=== PATIENT | male | born 1965 | race Caucasian/White ===

== ENCOUNTER 2017-01-20 16:51 | Emergency (ER) | payer MEDICAID ==
[~2017-01-20] VITALS: Ht 172.7 cm; Wt 70.0 kg
[~2017-01-20 16:51] MED LIST: CARV3.125 PO; FOLI1TAB4 PO; NITR0.4S SL; THERM PO; VITA100T2 PO
[2017-01-20 16:58] VITALS: BP 164/90; PULSE 103; RESP 20; TEMP 98; O2SAT 95
[2017-01-20 17:10] VITALS: BP 137/74; PULSE 97; RESP 18; TEMP 98.4
[2017-01-20] MEDS ORDERED: SODIUM CHLORIDE 0.9% FLUSH 5 ML FLUSH IVF PRN (18:00)
[2017-01-20] MEDS ORDERED: ASPIRIN 325 MG TAB PO ONE (18:00)
--- NOTE | 2017-01-20 18:12 | PD ---
HPI Chief Complaint: Chest Pain Time Seen by Provider: 18:11 Travel History International Travel<30 days: No Contact w/Intl Traveler<30days: No Traveled to known affect area: No History of Present Illness HPI 51-year-old male with a history of atrial fibrillation and alcohol abuse that presents to the ED for evaluation of alcohol abuse and chest pain and palpitations. Per patient she's been drinking since a young age. Per patient he has problems with alcohol. 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 Per patient he is homeless and cannot afford his medications. Per patient he drank about 16 cans of beer today. Per patient after drinking this he developed left-sided chest pain and palpitations. Per patient he feels like his heart is pounding. He states that he has some shortness of breath as well. Denies any abdominal pain. No nausea or vomiting. Per patient the symptoms have been ongoing for the past 2 hours. Per patient she's had these episodes before after drinking alcohol. He denies taking any blood thinners. Per patient he wants help with his alcohol. He does have a history of MRSA and allergies to lactose and penicillin. Denies any bowel movement or urinary issues. No other medical problems at this time. No trauma. No recent travel. Patient is a frequent flier to the hospital for alcohol-related problems as well as chest pain. He does have a documented history of A. fib. [facility] Past Medical History Arthritis: Yes Asthma: No Atrial Fibrillation: Yes Autoimmune Disease: No Blood Disorders: No Anxiety: Yes Depression: No Heart Rhythm Problems: Yes Cancer: No Cardiovascular Problems: Yes (ATRIAL FIBRILLATION) High Cholesterol: No Chest Pain: Yes Congestive Heart Failure: No COPD: No Cerebrovascular Accident: No Diabetes: No Diminished Hearing: Yes Diverticulitis: Yes Endocrine: No Gastrointestinal Disorders: Yes (CHRONES) GERD: No Genitourinary: No Hiatal Hernia: No Hypertension: No Immune Disorder: No Implanted Vascular Access Dvce: Yes Medical other: Yes (ALCOHOL DEPENDENCE) Musculoskeletal: Yes Neurologic: Yes (seizures) Psychiatric: Yes Reproductive: No Respiratory: No Immunizations Current: No Migraines: No Seizures: Yes (R/T ETOH few years ago) Sleep Apnea: No Thyroid Disease: No Ulcer: No PNEUMOCCOCAL Vaccine (Year): 1 Past Surgical History Abdominal Surgery: Yes (REMOVED PART OF LOWER INTESTINE) Appendectomy: Yes Arteriovenous Shunt: No Body Medical Devices: rods in right shoulder Cardiac Surgery: No Ear Surgery: No Endocrine Surgery: No Eye Surgery: No Genitourinary Surgery: No Gynecologic Surgery: No Neurologic Surgery: No Pacemaker: No Thoracic Surgery: No Other Surgery: Yes (COLON RESECTION) Social History Alcohol Use: Yes Tobacco Use: No Substance Use: No Allergies-Medications (Allergen,Severity, Reaction): Coded Allergies: Lactose (Verified Allergy, Severe, DIARRHEA, 01/20/17) *MDRO Multi-Drug Resistant Organism (Verified Allergy, Unknown, 01/20/17) MRSA (buttock wound) - 06/2013 MRSA PCR screen negative 01/10/16 Penicillin (Verified Allergy, Unknown, UNKNOWN, 01/20/17) Reported Meds & Prescriptions Reported Meds & Active Scripts Active Nitrostat SL (Nitroglycerin) 0.4 Mg Subl 0.4 Mg SL Q5M PRN Thera M Plus (Multivitamins/Minerals Therapeutic) 1 Tab 1 Tab PO DAILY Vitamin B-1 (Thiamine HCl) 100 Mg Tab 100 Mg PO DAILY Folate (Folic Acid) 1 Mg Tab 1 Mg PO DAILY Coreg (Carvedilol) 3.125 Mg Tab 3.125 Mg PO BID Review of Systems General / Constitutional: No: Fever, Chills, Weight Gain, Weight Loss, Other Eyes: No: Diploplia, Blurred Vision, Photophobia, Drainage, Redness, Foreign Body Sensation, Pain, Tearing, Blind Spots, Visual changes, Blindness, Other HENT: No: Headaches, Vertigo, Lightheadedness, Sore Throat, Rhinitis, Rhinorrhea, Congestion, Nosebleed, Neck Stiffness, Neck Pain, Masses, Gingival Bleeding, Dental Difficulties, Ear Discharge, Earache, Other Cardiovascular: Positive: Chest Pain or Discomfort, Palpitations, Tachycardia, Diaphoresis, No: Irregular Rhythm, Syncope, Dyspnea on exertion, Varicosities, Edema, Cyanosis, Varicosities, Phlebitis, Claudication, Other Respiratory: Positive: Shortness of Breath, No: Cough, Wheezing, Sneezing, Orthopnea, Hemoptysis, Stridor, Night Sweats, Pleuritic Pain, Other Gastrointestinal: No: Nausea, Vomiting, Diarrhea, Abdominal Pain, Hematemesis, Hematochezia, Constipation, Changes in Bowel Habits, Indigestion, Dysphagia, Loss of Appetite, Other Genitourinary: No: Urgency, Frequency, Dysuria, Nocturia, Hematuria, Decreased Urinary Output, Oliguria, Hesitancy, Dribbling, Incontinence, Pelvic Pain, Flank Pain, Dyspareunia, Discharge, Dysmenorrhea, Menorrhagia, Metorrhagia, Vaginal Bleeding, Other Skin: No Rash, No Itching, No Dryness, No Lumps, No Hives, No Change in Pigmentation, No Change in nails, No Alopecia, No Lesions, No Breast Lumps, No Breast Tenderness, No Breast Swelling, No Other Neurologic: No: Weakness, Dizziness, Syncope, Focal Abnormalities, Coordination Problem, Tremor, Ataxia, Headache, Change in Mentation, Slurred Speech, Paresthesia, Incontinence, Seizures, Sensory Disturbance, Other Psychiatric: Positive: Substance Abuse Endocrine: No: Heat Intolerance, Cold Intolerance, Polyuria, Polydipsia, Other Hematologic/Lymphatic: No: Easy Bruising, Lymph Node Enlargement, Other Physical Exam Narrative GENERAL: SKIN: Warm and dry. HEAD: Atraumatic. Normocephalic. EYES: Pupils equal and round 4 mm reactive to light and accommodation. No scleral icterus. No injection or drainage. ENT: No nasal bleeding or discharge. Mucous membranes pink and moist. Tongue is midline. No uvula deviation. NECK: Trachea midline. No JVD. CARDIOVASCULAR: Regular rate and rhythm. No murmurs, S3, S4. RESPIRATORY: No accessory muscle use. Clear to auscultation. Breath sounds equal bilaterally. GASTROINTESTINAL: Abdomen soft, non-tender, nondistended. Hepatic and splenic margins not palpable. MUSCULOSKELETAL: Extremities without clubbing, cyanosis, or edema. No obvious deformities. Full range of motion of the upper and lower extremities bilaterally. 2+ pulses bilaterally. NEUROLOGICAL: Awake and alert. No obvious cranial nerve deficits. Motor grossly within normal limits. Five out of 5 muscle strength in the arms and legs. Normal speech. PSYCHIATRIC: Appropriate mood and affect; insight and judgment normal. Data Data Last Documented VS Vital Signs Date Time Temp Pulse Resp B/P Pulse Ox O2 Delivery O2 Flow Rate FiO2 01/20/17 19:00 91 16 96 Room Air 01/20/17 17:10 98.4 137/74 Orders Electrocardiogram (01/20/17 ) Basic Metabolic Panel (Bmp) (01/20/17 17:49) Ckmb (Isoenzyme) Profile (01/20/17 17:49) Complete Blood Count With Diff (01/20/17 17:49) Magnesium (Mg) (01/20/17 17:49) Prothrombin Time / Inr (Pt) (01/20/17 17:49) Act Partial Throm Time (Ptt) (01/20/17 17:49) Troponin I (01/20/17 17:49) Chest, Single Ap (01/20/17 17:49) Ecg Monitoring (01/20/17 17:49) Bilateral Bp Monitoring (01/20/17:49) Iv Access Insert/Monitor (01/20/17:49) Oximetry (01/20/17 17:49) Oxygen Administration (01/20/17 17:49) Aspirin (Aspirin) (01/20/17 18:00) Sodium Chloride 0.9% Flush (Ns Flush) (01/20/17 18:00) Alcohol (Ethanol) (01/20/17 18:46) CKMB (01/20/17 18:20) CKMB% (01/20/17 18:20) Troponin I (01/20/17 21:20) Alcohol Withdrawal Asmt-Ciwa ONCE (01/20/17 20:22) Ondansetron Inj (Zofran Inj) (01/20/17 20:30) Acetaminophen (Tylenol) (01/20/17 20:30) Flumazenil Inj (Romazicon Inj) (01/20/17 20:30) Lorazepam (Ativan) (01/20/17 20:30) Lorazepam Inj (Ativan Inj) (01/20/17 20:30) Lorazepam (Ativan) (01/20/17 20:30) Lorazepam Inj (Ativan Inj) (01/20/17 20:30) Lorazepam Inj (Ativan Inj) (01/20/17 20:30) Lorazepam Inj (Ativan Inj) (01/20/17 20:30) Labs Laboratory Tests Test 01/20/17 01/20/17 18:20 20:55 White Blood Count 5.5 TH/MM3 Red Blood Count 5.06 MIL/MM3 Hemoglobin 14.7 GM/DL Hematocrit 43.1 % Mean Corpuscular Volume 85.1 FL Mean Corpuscular Hemoglobin 29.0 PG Mean Corpuscular Hemoglobin 34.1 % Concent Red Cell Distribution Width 17.8 % Platelet Count 197 TH/MM3 Mean Platelet Volume 6.8 FL Neutrophils (%) (Auto) 62.3 % Lymphocytes (%) (Auto) 30.5 % Monocytes (%) (Auto) 5.0 % Eosinophils (%) (Auto) 1.2 % Basophils (%) (Auto) 1.0 % Neutrophils # (Auto) 3.4 TH/MM3 Lymphocytes # (Auto) 1.7 TH/MM3 Monocytes # (Auto) 0.3 TH/MM3 Eosinophils # (Auto) 0.1 TH/MM3 Basophils # (Auto) 0.1 TH/MM3 CBC Comment DIFF FINAL Differential Comment Prothrombin Time 10.3 SEC Prothromb Time International 0.9 RATIO Ratio Activated Partial 28.0 SEC Thromboplast Time Sodium Level 135 MEQ/L Potassium Level 4.0 MEQ/L Chloride Level 93 MEQ/L Carbon Dioxide Level 28.3 MEQ/L Anion Gap 14 MEQ/L Blood Urea Nitrogen 7 MG/DL Creatinine 0.89 MG/DL Estimat Glomerular Filtration 90 ML/MIN Rate Random Glucose 116 MG/DL Calcium Level 8.6 MG/DL Magnesium Level 2.3 MG/DL Total Creatine Kinase 425 U/L Creatine Kinase MB 5.7 NG/ML Creatine Kinase MB % 1.3 % Troponin I LESS THAN 0.02 LESS THAN 0.02 NG/ML NG/ML Ethyl Alcohol Level 457 MG/DL [facility] Medical Decision Making Medical Screen Exam Complete: Yes Emergency Medical Condition: Yes Medical Record Reviewed: Yes Interpretation(s) EKG shows sinus rhythm with no sign of acute ischemia or arrhythmia. Read by me and attending. CBC & BMP Diagram 01/20/17 18:20 Chest x-ray negative for acute disease. LFTs within normal limits. Alcohol in the 450s. Differential Diagnosis Chest pain versus atypical chest pain versus A. fib versus alcohol abuse versus alcohol intoxication versus A. fib and RVR versus pneumonia Narrative Course 51-year-old male that presents to the ED for evaluation of left-sided chest pain and palpitations after drinking. Patient was properly examined and was found to have signs and symptoms consistent what appears to be at this time a typical chest pain. Cannot rule out ACS as patient does have risk factors for this. Including age, substance abuse, hypertension.. Labs and imaging were ordered. Labs and imaging showed alcohol intoxication but otherwise unremarkable. My attending Dr. Viel evaluated the patient with me and he recommends second troponin. If Second troponin is negative patient can be allowed to sleep of his intoxication and then clear for outpatient rehabilitation as needed. Second troponin was done and was negative. Patient was reassured. At this time this appears to be a typical chest pain. Likely secondary to his alcohol abuse. CIWA protocol was ordered. Patient will be allowed to sleep off his intoxication until medically sober. Diagnosis Primary Impression: Atypical chest pain Additional Impression: Alcohol intoxication Qualified Code: F10.129 - Alcohol intoxication, with unspecified complication Hank Hamlin Jan 20, 2017 18:12 Hank Hamlin Jan 20, 2017 18:12
[2017-01-20 18:44] LABS: AUTOMATED NEUTROPHIL # 3.4 TH/MM3 (1.8-7.7); BASOPHIL # 0.1 TH/MM3 (0-0.2); EOSINOPHIL # 0.1 TH/MM3 (0-0.4); EOSINOPHIL % 1.2 % (0.0-4.0); HEMATOCRIT 43.1 % (39.0-51.0); HEMO FLAGS DIFF FINAL; LYMPH % 30.5 % (9.0-44.0); LYMPHOCYTE # 1.7 TH/MM3 (1.0-4.8); MEAN CELL VOLUME 85.1 FL (80.0-100.0); MEAN CORPUSCULAR HGB CONC 34.1 % (32.0-36.0); NEUT % 62.3 % (16.0-70.0); PLATELET COUNT 197 TH/MM3 (150-450); RED BLOOD COUNT 5.06 MIL/MM3 (4.50-5.90); RED CELL DISTRIBUTION WIDTH 17.8 % (11.6-17.2); WHITE BLOOD COUNT 5.5 TH/MM3 (4.0-11.0)
[2017-01-20 18:52] LABS: INTERNATIONAL NORMALIZED RATIO 0.9 RATIO; PROTHROMBIN TIME - PATIENT 10.3 SEC (9.8-11.6)
[2017-01-20 19:00] VITALS: PULSE 91; RESP 16; O2SAT 96
[2017-01-20 19:11] LABS: ANION GAP 14 MEQ/L (5-15); BICARBONATE 28.3 MEQ/L (21.0-32.0); BLOOD UREA NITROGEN 7 MG/DL (7-18); CHLORIDE 93 MEQ/L (98-107); GLOMERULAR FILTRATION RATE 90 ML/MIN (>89); MAGNESIUM 2.3 MG/DL (1.5-2.5); SODIUM (NA) 135 MEQ/L (136-145)
[2017-01-20 19:15] LABS: CREATINE KINASE 425 U/L (39-308)
[2017-01-20 19:27] LABS: CKMB 5.7 NG/ML (0.5-3.6)
--- NOTE | 2017-01-20 19:54 | RADRPT ---
EXAM DATE/TIME: 01/20/2017 19:19 [place] COMPARISON: No previous studies available for comparison. INDICATIONS : Shortness of breath and chest pain. MEDICAL HISTORY : None. SURGICAL HISTORY : None. ENCOUNTER: Initial ACUITY: 1 day PAIN SCORE: 3/10 LOCATION: Bilateral chest FINDINGS: A single view of the chest demonstrates the lungs to be symmetrically aerated without evidence of mas s, infiltrate or effusion. The cardiomediastinal contours are unremarkable. Osseous structures are intact. CONCLUSION: No evidence of acute cardiopulmonary disease. Vinnie Martinez MD on January 20, 2017 at 19:52 Board Certified Radiologist. This report was verified electronically.
[2017-01-20] MEDS ORDERED: ACETAMINOPHEN 325 MG TAB PO PRN (20:30)
[2017-01-20] MEDS ORDERED: LORazepam 2 MG/ML VIAL IV PUSH PRN ×4 (20:30)
[2017-01-20] MEDS ORDERED: FLUMAZENIL 0.5 MG/5 ML VIAL IV PUSH PRN (20:30)
[2017-01-20] MEDS ORDERED: LORazepam 1 MG TAB PO PRN (20:30)
[2017-01-20] MEDS ORDERED: LORazepam 2 MG TAB PO PRN (20:30)
[2017-01-20] MEDS ORDERED: ONDANSETRON HCL 4 MG/2 ML VIAL IV PUSH PRN (20:30)
[2017-01-21 01:03] VITALS: BP 138/76; PULSE 102; RESP 16; O2SAT 96
[2017-01-21 06:04] VITALS: BP 169/81; PULSE 108; RESP 20; TEMP 98.1; O2SAT 99
[2017-01-21 07:28] VITALS: BP 157/98; PULSE 118; RESP 16; O2SAT 98
[2017-01-21] MEDS ORDERED: SODIUM CHLOR 0.9% 1000 ML INJ 1,000 ML IV ONE (08:00)
[2017-01-21] MEDS ORDERED: THIAMINE INJ 100 MG in SODIUM CHLORIDE 0.9% INJ 100 ML IV ONE (08:00)
[2017-01-21] MEDS ORDERED: LORazepam 2 MG/ML VIAL IV PUSH ONE (08:00)
--- NOTE | 2017-01-21 08:07 | PD ---
Data Data Last Documented VS Vital Signs Date Time Temp Pulse Resp B/P Pulse Ox O2 Delivery O2 Flow Rate FiO2 01/21/17 09:43 126 18 153/77 95 Room Air 01/21/17 06:04 98.1 Orders Electrocardiogram (01/20/17 ) Basic Metabolic Panel (Bmp) (01/20/17 17:49) Ckmb (Isoenzyme) Profile (01/20/17 17:49) Complete Blood Count With Diff (01/20/17 17:49) Magnesium (Mg) (01/20/17 17:49) Prothrombin Time / Inr (Pt) (01/20/17 17:49) Act Partial Throm Time (Ptt) (01/20/17 17:49) Troponin I (01/20/17 17:49) Chest, Single Ap (01/20/17:49) Ecg Monitoring (01/20/17 17:49) Bilateral Bp Monitoring (01/20/17 17:49) Iv Access Insert/Monitor (01/20/17 17:49) Oximetry (01/20/17 17:49) Oxygen Administration (01/20/17 17:49) Aspirin (Aspirin) (01/20/17 18:00) Sodium Chloride 0.9% Flush (Ns Flush) (01/20/17 18:00) Alcohol (Ethanol) (01/20/17 18:46) CKMB (01/20/17 18:20) CKMB% (01/20/17 18:20) Troponin I (01/20/17 21:20) Ondansetron Inj (Zofran Inj) (01/20/17 20:30) Acetaminophen (Tylenol) (01/20/17 20:30) Flumazenil Inj (Romazicon Inj) (01/20/17 20:30) Lorazepam (Ativan) (01/20/17 20:30) Lorazepam Inj (Ativan Inj) (01/20/17 20:30) Lorazepam (Ativan) (01/20/17 20:30) Lorazepam Inj (Ativan Inj) (01/20/17 20:30) Lorazepam Inj (Ativan Inj) (01/20/17 20:30) Lorazepam Inj (Ativan Inj) (01/20/17 20:30) Diet Regular Basic (01/21/17 Breakfast) Lorazepam Inj (Ativan Inj) (01/21/17 08:00) Sodium Chlor 0.9% 1000 Ml Inj (Ns 1000 M (01/21/17 08:00) Thiamine Inj (Thiamine Inj) (01/21/17 08:00) Labs Laboratory Tests Test 01/20/17 01/20/17 18:20 20:55 White Blood Count 5.5 TH/MM3 Red Blood Count 5.06 MIL/MM3 Hemoglobin 14.7 GM/DL Hematocrit 43.1 % Mean Corpuscular Volume 85.1 FL Mean Corpuscular Hemoglobin 29.0 PG Mean Corpuscular Hemoglobin 34.1 % Concent Red Cell Distribution Width 17.8 % Platelet Count 197 TH/MM3 Mean Platelet Volume 6.8 FL Neutrophils (%) (Auto) 62.3 % Lymphocytes (%) (Auto) 30.5 % Monocytes (%) (Auto) 5.0 % Eosinophils (%) (Auto) 1.2 % Basophils (%) (Auto) 1.0 % Neutrophils # (Auto) 3.4 TH/MM3 Lymphocytes # (Auto) 1.7 TH/MM3 Monocytes # (Auto) 0.3 TH/MM3 Eosinophils # (Auto) 0.1 TH/MM3 Basophils # (Auto) 0.1 TH/MM3 CBC Comment DIFF FINAL Differential Comment Prothrombin Time 10.3 SEC Prothromb Time International 0.9 RATIO Ratio Activated Partial 28.0 SEC Thromboplast Time Sodium Level 135 MEQ/L Potassium Level 4.0 MEQ/L Chloride Level 93 MEQ/L Carbon Dioxide Level 28.3 MEQ/L Anion Gap 14 MEQ/L Blood Urea Nitrogen 7 MG/DL Creatinine 0.89 MG/DL Estimat Glomerular Filtration 90 ML/MIN Rate Random Glucose 116 MG/DL Calcium Level 8.6 MG/DL Magnesium Level 2.3 MG/DL Total Creatine Kinase 425 U/L Creatine Kinase MB 5.7 NG/ML Creatine Kinase MB % 1.3 % Troponin I LESS THAN 0.02 LESS THAN 0.02 NG/ML NG/ML Ethyl Alcohol Level 457 MG/DL [facility] Supervised Visit with DRE: Yes Narrative Course Patient seen and examined by me this morning, patient came in heavily intoxicated last night with alcohol of 457. This morning I was asked by nursing to reevaluate the patient is started to having some tremors and some mild withdrawal symptoms. He is ambulates to and from the bathroom. No confusion no fevers mildly tachycardic. He received an aspirin overnight and workup for chest pain including 2 troponins. On my evaluation patient is alert and awake and oriented mildly tachycardic and no fever. He has some mild tremors in bilateral hands. He does tell me that he has been admitted for withdrawals in the past. He was given Ativan 2 mg IV as well as thiamine IV and a liter of normal saline. Heart rate is normalizing. After Ativan he is ambulating in the emergency department without any distress. Tremors are getting better. Patient is stable for discharge with only mild alcohol withdrawal symptoms at this time without delirium. Discussed with them need for follow-up with Wilmer horta to return to ED criteria. Discussed with him his chest pain diagnosis recommended follow with a primary care physician. He is currently chest pain-free. I also discussed with him smoking cessation is may lead to further adverse health outcomes. Diagnosis Primary Impression: Atypical chest pain Additional Impression: Alcohol intoxication Qualified Code: F10.129 - Alcohol intoxication, with unspecified complication Patient Instructions: General Instructions, Chest Pain (ED), Alcohol Intoxication (ED) Departure Forms: Tests/Procedures Disposition: 01 DISCHARGE HOME Condition: Stable Demarco Yusuf MD Jan 21, 2017 08:07
[2017-01-21 08:45] VITALS: BP 140/79; PULSE 98; RESP 16; O2SAT 99
[2017-01-21 09:43] VITALS: BP 153/77; PULSE 126; RESP 18; O2SAT 95
--- NOTE | 2017-01-21 15:03 | EKG ---
Date Performed: 01/20/2017 Time Performed: 17:12:28 PTAGE: 51 years EKG: Sinus rhythm WITH SHORT WA INTERVAL LOW QRS VOLTAGE IN EXTREMITY LEADS BORDERLINE ECG Compared to prior tracing n o significant change PREVIOUS TRACING : 10/30/2016 22.03 DOCTOR: Belinda De Leon Interpretating Date/Time 01/21/2017 14:55:16
== END 2017-01-21 10:57 | disposition home or self-care (01) ==
LOC: NEPE 16:51 → NEPA 01-21 10:57
DX: R07.89 Other chest pain (principal); F10.129 Alcohol abuse with intoxication, unspecified; R00.2 Palpitations; R06.02 Shortness of breath; R25.1 Tremor, unspecified; I48.91 Unspecified atrial fibrillation; H91.90 Unspecified hearing loss, unspecified ear; Z86.14 Personal history of Methicillin resistant Staphylococcus aureus infection; Z87.39 Personal history of other diseases of the musculoskeletal system and connective tissue; Z86.59 Personal history of other mental and behavioral disorders; Z86.79 Personal history of other diseases of the circulatory system; Z87.19 Personal history of other diseases of the digestive system; Z86.69 Personal history of other diseases of the nervous system and sense organs; R94.31 Abnormal electrocardiogram [ECG] [EKG]
CPT/HCPCS: 71010; 80048; 80307; 82550; 82552; 83735; 84484; 85025; 85610; 85730; 93005; 96361; 96365; 96375; 99285; J2060; J3411; J7030

== ENCOUNTER 2017-03-16 10:59 | Inpatient (IN) | payer MEDICAID ==
[~2017-03-16] VITALS: Ht 167.6 cm; Wt 72.8 kg
[2017-03-16 11:01] VITALS: BP 165/90; PULSE 110; RESP 20; TEMP 98.5; O2SAT 98
--- NOTE | 2017-03-16 11:24 | PD ---
HPI Chief Complaint: Alcohol/Drug Intoxication Time Seen by Provider: 11:22 Travel History International Travel<30 days: No Contact w/Intl Traveler<30days: No Traveled to known affect area: No History of Present Illness HPI Patient is a 52-year-old male presents emergency department for evaluation of chest tightness. Patient also states she's been having tremors and thinks might be going and alcohol withdrawals. Patient states is not a regular drinker not given it up. However earlier this week he received some "stressful news ". When asked to elaborate the patient states he found out that his mother . This caused him to start drinking hasn't had a drink for approximately 36-48 hours. Patient states that he's been having some tremors and thinks he might have a seizure". Patient states she's also been having some mild shortness of breath but no nausea no vomiting. PFSH Past Medical History Arthritis: Yes Asthma: No Atrial Fibrillation: Yes Autoimmune Disease: No Blood Disorders: No Anxiety: Yes Depression: No Heart Rhythm Problems: Yes Cancer: No Cardiovascular Problems: Yes (ATRIAL FIBRILLATION) High Cholesterol: No Chest Pain: Yes Congestive Heart Failure: No COPD: No Cerebrovascular Accident: No Diabetes: No Diminished Hearing: Yes Diverticulitis: Yes Endocrine: No Gastrointestinal Disorders: Yes (CHRONES) GERD: No Genitourinary: No Hiatal Hernia: No Hypertension: No Immune Disorder: No Implanted Vascular Access Dvce: Yes Musculoskeletal: Yes Neurologic: Yes (seizures) Psychiatric: Yes Reproductive: No Respiratory: No Immunizations Current: No Migraines: No Seizures: Yes (R/T ETOH few years ago) Sleep Apnea: No Thyroid Disease: No Ulcer: No PNEUMOCCOCAL Vaccine (Year): 1 Past Surgical History Abdominal Surgery: Yes (REMOVED PART OF LOWER INTESTINE) Appendectomy: Yes Arteriovenous Shunt: No Body Medical Devices: rods in right shoulder Cardiac Surgery: No Ear Surgery: No Endocrine Surgery: No Eye Surgery: No Genitourinary Surgery: No Gynecologic Surgery: No Neurologic Surgery: No Pacemaker: No Thoracic Surgery: No Other Surgery: Yes (COLON RESECTION) Social History Alcohol Use: Yes Tobacco Use: No Substance Use: No Allergies-Medications (Allergen,Severity, Reaction): Coded Allergies: Lactose (Verified Allergy, Severe, DIARRHEA, 01/20/17) *MDRO Multi-Drug Resistant Organism (Verified Allergy, Unknown, 01/20/17) MRSA (buttock wound) - 06/2013 MRSA PCR screen negative 01/10/16 Penicillin (Verified Allergy, Unknown, UNKNOWN, 01/20/17) Reported Meds & Prescriptions Reported Meds & Active Scripts Active Vitamin B-1 (Thiamine HCl) 100 Mg Tab 100 Mg PO DAILY Folate (Folic Acid) 1 Mg Tab 1 Mg PO DAILY Coreg (Carvedilol) 3.125 Mg Tab 3.125 Mg PO BID Review of Systems Except as stated in HPI: all other systems reviewed are Neg Physical Exam Narrative GENERAL: Well-developed well-nourished, unkempt. SKIN: Focused skin assessment warm/dry. HEAD: Atraumatic. Normocephalic. EYES: Pupils equal and round. No scleral icterus. No injection or drainage. ENT: No nasal bleeding or discharge. Mucous membranes pink and moist. NECK: Trachea midline. No JVD. CARDIOVASCULAR: Regular rhythm with tachycardia. No murmur appreciated. 2+ bilateral equal pulses in all 4 extremities. RESPIRATORY: No accessory muscle use. Clear to auscultation. Breath sounds equal bilaterally. GASTROINTESTINAL: Abdomen soft, non-tender, nondistended. Hepatic and splenic margins not palpable. MUSCULOSKELETAL: No obvious deformities. No clubbing. No cyanosis. No edema. NEUROLOGICAL: Awake and alert oriented 4. Cranial nerves II-12 grossly intact and nonfocal, 5 out of 5 strength in all 4 extremity's. Patient does exhibit a coarse tremor bilateral upper extremities. PSYCHIATRIC: Appropriate mood and affect; insight and judgment normal. Data Data Last Documented VS Vital Signs Date Time Temp Pulse Resp B/P Pulse Ox O2 Delivery O2 Flow Rate FiO2 03/16/17 11:30 21 97 Room Air 03/16/17 11:01 98.5 110 165/90 Orders Electrocardiogram (03/16/17 ) Complete Blood Count With Diff (03/16/17 11:33) Comprehensive Metabolic Panel (03/16/17 11:33) Magnesium (Mg) (03/16/17 11:33) Prothrombin Time / Inr (Pt) (03/16/17 11:33) Act Partial Throm Time (Ptt) (03/16/17 11:33) Troponin I (03/16/17 11:33) Lipase (03/16/17 11:33) Chest, Single Ap (03/16/17 11:33) Ecg Monitoring (03/16/17 11:33) Iv Access Insert/Monitor (03/16/17 11:33) Oximetry (03/16/17 11:33) Oxygen Administration (03/16/17 11:33) Sodium Chloride 0.9% Flush (Ns Flush) (03/16/17 11:45) Sodium Chlor 0.9% 1000 Ml Inj (Ns 1000 M (03/16/17 11:45) Lorazepam Inj (Ativan Inj) (03/16/17 12:00) Lorazepam Inj (Ativan Inj) (03/16/17 12:15) Alcohol (Ethanol) (03/16/17 12:13) Troponin I (03/16/17 12:16) Admit Order (Ed Use Only) (03/16/17 ) Labs Laboratory Tests Test 03/16/17 11:35 White Blood Count 9.8 TH/MM3 Red Blood Count 5.49 MIL/MM3 Hemoglobin 16.0 GM/DL Hematocrit 48.0 % Mean Corpuscular Volume 87.3 FL Mean Corpuscular Hemoglobin 29.0 PG Mean Corpuscular Hemoglobin 33.3 % Concent Red Cell Distribution Width 15.5 % Platelet Count 120 TH/MM3 Mean Platelet Volume 7.0 FL Neutrophils (%) (Auto) 90.1 % Lymphocytes (%) (Auto) 6.2 % Monocytes (%) (Auto) 3.4 % Eosinophils (%) (Auto) 0.1 % Basophils (%) (Auto) 0.2 % Neutrophils # (Auto) 8.8 TH/MM3 Lymphocytes # (Auto) 0.6 TH/MM3 Monocytes # (Auto) 0.3 TH/MM3 Eosinophils # (Auto) 0.0 TH/MM3 Basophils # (Auto) 0.0 TH/MM3 CBC Comment DIFF FINAL Differential Comment Prothrombin Time 11.4 SEC Prothromb Time International 1.0 RATIO Ratio Activated Partial 25.9 SEC Thromboplast Time Sodium Level 138 MEQ/L Potassium Level 3.4 MEQ/L Chloride Level 96 MEQ/L Carbon Dioxide Level 25.5 MEQ/L Anion Gap 17 MEQ/L Blood Urea Nitrogen 9 MG/DL Creatinine 0.84 MG/DL Estimat Glomerular Filtration 96 ML/MIN Rate Random Glucose 111 MG/DL Calcium Level 9.1 MG/DL Magnesium Level 1.4 MG/DL Total Bilirubin 1.3 MG/DL Aspartate Amino Transf 129 U/L (AST/SGOT) Alanine Aminotransferase 141 U/L (ALT/SGPT) Alkaline Phosphatase 120 U/L Troponin I LESS THAN 0.02 NG/ML Total Protein 7.7 GM/DL Albumin 4.3 GM/DL Lipase 190 U/L Ethyl Alcohol Level 33 MG/DL [facility] Medical Decision Making Medical Screen Exam Complete: Yes Emergency Medical Condition: Yes Interpretation(s) EKG shows sinus tachycardia rate of 107, normal axis and a normal R wave progression. No obvious ST segment changes however interpretation of precordial leads limited by motion artifact. The borderline EKG. Differential Diagnosis Alcohol withdrawal, chest pain, ACS, AMI, pneumonia. Narrative Course Patient roomed in the emergency department, he does have some risk factors for ACS. Does have some symptoms consistent with mild alcohol withdrawal. He was given Ativan. Discussed initial EKG and troponin negative and discussed continuing workup as an observation status and he is agreeable. He is feeling better after Ativan no seizure activity observed in emerged Department and no delirium. Last 24 hours Impressions Chest X-Ray 03/16/17 1133 Signed Impressions: Service Date/Time: Thursday, March 16, 2017 11:50 - CONCLUSION: No acute disease. Rivera Fink MD Diagnosis Primary Impression: Chest pain Qualified Code: R07.9 - Chest pain, unspecified type Additional Impression: Alcohol withdrawal Admitting Information Admitting Physician Requests: Observation Condition: Stable Demarco Yusuf MD March 16, 2017 11:24 Demarco Yusuf MD March 16, 2017 11:24
[2017-03-16 11:30] VITALS: RESP 21; O2SAT 97
[2017-03-16] MEDS ORDERED: SODIUM CHLOR 0.9% 1000 ML INJ 1,000 ML IV ONE (11:45)
[2017-03-16] MEDS ORDERED: SODIUM CHLORIDE 0.9% FLUSH 10 ML FLUSH IVF PRN (11:45)
[2017-03-16 11:59] LABS: AUTOMATED NEUTROPHIL # 8.8 TH/MM3 (1.8-7.7); BASOPHIL % 0.2 % (0.0-2.0); EOSINOPHIL % 0.1 % (0.0-4.0); HEMO FLAGS DIFF FINAL; LYMPH % 6.2 % (9.0-44.0); LYMPHOCYTE # 0.6 TH/MM3 (1.0-4.8); MEAN CELL VOLUME 87.3 FL (80.0-100.0); MEAN CORPUSCULAR HGB CONC 33.3 % (32.0-36.0); MONO % 3.4 % (0.0-8.0); NEUT % 90.1 % (16.0-70.0); PLATELET COUNT 120 TH/MM3 (150-450); RED BLOOD COUNT 5.49 MIL/MM3 (4.50-5.90); RED CELL DISTRIBUTION WIDTH 15.5 % (11.6-17.2); WHITE BLOOD COUNT 9.8 TH/MM3 (4.0-11.0)
[2017-03-16] MEDS ORDERED: LORazepam 2 MG/ML VIAL IV PUSH ONE ×2 (12:00→12:15)
[2017-03-16 12:06] LABS: APTT (PATIENT) 25.9 SEC (24.3-30.1); PROTHROMBIN TIME - PATIENT 11.4 SEC (9.8-11.6)
--- NOTE | 2017-03-16 12:07 | RADRPT ---
EXAM DATE/TIME: 03/16/2017 11:50 [facility] COMPARISON: CHEST SINGLE AP, January 20, 2017, 19:19. INDICATIONS : Vomiting and pain in left lower chest without trauma. MEDICAL HISTORY : None. SURGICAL HISTORY : None. ENCOUNTER: Initial ACUITY: 2 days PAIN SCORE: 5/10 LOCATION: Left lower chest FINDINGS: A single view of the chest demonstrates the lungs to be symmetrically aerated without evidence of mas s, infiltrate or effusion. The cardiomediastinal contours are unremarkable. Osseous structures are intact. The upper abdomen is unremarkable. There is a stable compression fracture deformity in the lo wer thoracic spine. CONCLUSION: No acute disease. Rivera Fink MD on March 16, 2017 at 12:04 Board Certified Radiologist. This report was verified electronically.
[2017-03-16 12:11] LABS: ALT (GPT) 141 U/L (12-78); ANION GAP 17 MEQ/L (5-15); AST (GOT) 129 U/L (15-37); BICARBONATE 25.5 MEQ/L (21.0-32.0); BLOOD UREA NITROGEN 9 MG/DL (7-18); CHLORIDE 96 MEQ/L (98-107); GLOMERULAR FILTRATION RATE 96 ML/MIN (>89); MAGNESIUM 1.4 MG/DL (1.5-2.5); POTASSIUM 3.4 MEQ/L (3.5-5.1); SODIUM (NA) 138 MEQ/L (136-145)
[2017-03-16 12:15] LABS: ALKALINE PHOSPHATASE 120 U/L (45-117); TOTAL BILIRUBIN ADULT 1.3 MG/DL (0.2-1.0)
--- NOTE | 2017-03-16 13:01 | HHI.HP ---
[facility] Service Family Medicine Primary Care Physician No Primary Care Physician Admission Diagnosis Diagnoses: International Travel<30 Days: No Contact w/Intl Traveler<30days: No Known Affected Area: No History of Present Illness Patient is a 52-year-old male with PMH significant for alcohol abuse and A. fib. Presents here today due to the "shakes." Patient reports that he started binge drinking after the loss of his mother a week or so ago. He had previously been abstinent for a few months. Reports drinking multiple pints of liquor and beer over the last week. He then stopped drinking 2 days ago as he felt like he needed to quit. He has had prior episodes of binge drinking but denies any history of withdrawals leading to seizures or intubation. Patient was admitted on 10/2016 for similar symptoms. He does report possible hallucinations that are described as seeing people outside of his door while in the ED and then disappearing. He also reports prior hallucinations during another episode of withdrawal at which time he would see angels. Denies auditory hallucinations. Endorses palpitations, nausea, decreased appetite, fever/chills, epigastric abdominal burning. In addition to symptoms of withdrawal, patient reports left arm weakness that started 2 days ago but resolved last night. Was associated with chest pain that comes and goes but will last all day. Described as burning. Prior to incidence of withdrawal, patient could walk with heavy tools without associated chest pain. Chest pain is on left and is described as burning. Currently without radiation. Does state that chest pain, left arm weakness started after a nonproductive cough. Rest does not improve chest pain. No associated SOB. Review of Systems Constitutional: COMPLAINS OF: Chills, Change in appetite, DENIES: Diaphoretic episodes Eyes: DENIES: Eye pain Ears, nose, mouth, throat: COMPLAINS OF: Throat pain Respiratory: COMPLAINS OF: Cough, DENIES: Hemoptysis, Sputum production, Shortness of breath Cardiovascular: COMPLAINS OF: Chest pain, Palpitations, DENIES: Syncope, Dyspnea on Exertion, Lower Extremity Edema Gastrointestinal: COMPLAINS OF: Abdominal pain, Diarrhea (Baseline from Crohn's ), Nausea, Vomiting Genitourinary: DENIES: Hematuria, Dysuria Neurologic: DENIES: Localized weakness, Seizures Psychiatric: COMPLAINS OF: Hallucinations Past Family Social History Past Medical History History of Crohn disease ETOH abuse Anxiety/Depression Atrial fibrillation Past Surgical History Appendectomy per chart review but patient denies having this Small bowel resection Reported Medications Denies taking any medications. Allergies: Coded Allergies: Lactose (Verified Allergy, Severe, DIARRHEA, 01/20/17) *MDRO Multi-Drug Resistant Organism (Verified Allergy, Unknown, 01/20/17) MRSA (buttock wound) - 06/2013 MRSA PCR screen negative 01/10/16 Penicillin (Verified Allergy, Unknown, UNKNOWN, 01/20/17) Family History Mother: from old age in her 80s Father: from silicosis Social History Lives in a motel alone Alcohol: binge drinks periodically. Did quit a few months prior to this incident Tobacco: denies Illicit: Denies Physical Exam Vital Signs Vital Signs Date Time Temp Pulse Resp B/P Pulse Ox O2 Delivery O2 Flow Rate FiO2 03/16/17 11:30 21 97 Room Air 03/16/17 11:30 97 Room Air 03/16/17 11:01 98.5 110 20 165/90 98 Room Air Physical Exam GENERAL: Poor hygiene. Resting comfortably in bed but does have small tremors. Vital signs reassuring. SKIN: Erythematous patches on forehead EYES: Pupils equal round and reactive. Extraocular motions intact. No scleral icterus. No injection or drainage. ENT: Nose without bleeding, purulent drainage. Dry mucous membranes. Unable to visualize back of throat NECK: Trachea midline. No lymphadenopathy. CARDIOVASCULAR: Regular rate and rhythm without murmurs, gallops, or rubs. RESPIRATORY: Clear to auscultation. Breath sounds equal bilaterally. No wheezes , rales, or rhonchi. GASTROINTESTINAL: Abdomen soft, non-tender, nondistended. No hepato-splenomegaly , or palpable masses. No guarding. MUSCULOSKELETAL: Extremities without clubbing, cyanosis, or edema. No calf tenderness.. NEUROLOGICAL: Awake and alert. Cranial nerves II through XII intact. Motor and sensory grossly within normal limits. Five out of 5 muscle strength in all muscle groups. Normal speech. Laboratory Laboratory Tests Test 03/16/17 11:35 White Blood Count 9.8 Red Blood Count 5.49 Hemoglobin 16.0 Hematocrit 48.0 Mean Corpuscular Volume 87.3 Mean Corpuscular Hemoglobin 29.0 Mean Corpuscular Hemoglobin 33.3 Concent Red Cell Distribution Width 15.5 Platelet Count 120 Mean Platelet Volume 7.0 Neutrophils (%) (Auto) 90.1 Lymphocytes (%) (Auto) 6.2 Monocytes (%) (Auto) 3.4 Eosinophils (%) (Auto) 0.1 Basophils (%) (Auto) 0.2 Neutrophils # (Auto) 8.8 Lymphocytes # (Auto) 0.6 Monocytes # (Auto) 0.3 Eosinophils # (Auto) 0.0 Basophils # (Auto) 0.0 CBC Comment DIFF FINAL Differential Comment Prothrombin Time 11.4 Prothromb Time International 1.0 Ratio Activated Partial 25.9 Thromboplast Time Sodium Level 138 Potassium Level 3.4 Chloride Level 96 Carbon Dioxide Level 25.5 Anion Gap 17 Blood Urea Nitrogen 9 Creatinine 0.84 Estimat Glomerular Filtration 96 Rate Random Glucose 111 Calcium Level 9.1 Magnesium Level 1.4 Total Bilirubin 1.3 Aspartate Amino Transf 129 (AST/SGOT) Alanine Aminotransferase 141 (ALT/SGPT) Alkaline Phosphatase 120 Troponin I LESS THAN 0.02 Total Protein 7.7 Albumin 4.3 Lipase 190 Result Diagram: 03/16/17 1135 03/16/17 1135 Imaging Last Impressions Chest X-Ray 03/16/17 1133 Signed Impressions: Service Date/Time: Thursday, March 16, 2017 11:50 - CONCLUSION: No acute disease. Rivera Fink MD Assessment and Plan Assessment and Plan 52-year-old male with history of alcohol abuse and A. fib. Admitted for alcohol withdrawal and ACS evaluation. Code Status Full Problem List: (1) Alcohol withdrawal Status: Acute Plan: History of alcohol abuse with binge drinking. Patient reports that his last drink was 2 days ago however alcohol level was 33 today. Does have small tremors on exam. History of hallucinations and reports hallucinations presently. 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 -CIWA protocol, seizure precautions, neuro checks -IV rally pack -Monitor electrolytes -UDS, CK ordered (2) Atrial fibrillation Status: Chronic Plan: Appears to be chronic. Patient is rate controlled. Upon chart review, he was previously discharged with carvedilol 3.125 mg BID but he has not been taking it. Additionally, recent alcohol use may have exacerbated symptoms. [id number] Score 0. -Resume Coreg 3.125mg BID -Does not need anticoagulation therapy -Cardiac telemetry (3) Chest pain Status: Acute Plan: Description of chest pain is atypical especially since a few days prior he was able to exert without associated symptoms. -ACS evaluation, initial troponin negative -Chest x-ray unremarkable (4) Elevated liver enzymes Status: Acute Plan: Elevated liver enzymes but with normal INR. Has had prior hepatitis testing which was negative in 2012. Lipase negative. DDX includes alcoholic hepatitis vs viral hepatitis -Hepatitis panel ordered -Closely monitor CMP (5) Nutrition, metabolism, and development symptoms Status: Acute Plan: Diet: Clear liquids, advance as tolerated Fluids: NS at 100 Electrolytes: Low potassium and magnesium. Depleted both. Continue to closely monitor DVT prophylaxis: SCDs due to high risk of alcoholic seizures GI prophylaxis: Protonix due to possible alcoholic gastritis Physician Certification 2 Midnight Certification Type: Admission for Inpatient Services Order for Inpatient Services The services are ordered in accordance with Medicare regulations or non- Medicare payer requirements, as applicable. In the case of services not specified as inpatient-only, they are appropriately provided as inpatient services in accordance with the 2-midnight benchmark. Estimated LOS (days): 2 days is the estimated time the patient will need to remain in the hospital, assuming treatment plan goals are met and no additional complications. Post-Hospital Plan: Home Problem Qualifiers (1) Chest pain: Qualified Code: R07.9 - Chest pain, unspecified type Doris Rosas MD R2 March 16, 2017 13:01
[2017-03-16] MEDS ORDERED: FLUMAZENIL 0.5 MG/5 ML VIAL IV PUSH PRN (14:00)
[2017-03-16] MEDS ORDERED: LORazepam 1 MG TAB PO PRN (14:00)
[2017-03-16] MEDS ORDERED: ACETAMINOPHEN 325 MG TAB PO PRN (14:00)
[2017-03-16] MEDS ORDERED: LORazepam 2 MG/ML VIAL IV PUSH PRN ×3 (14:00)
[2017-03-16] MEDS ORDERED: FOLIC ACID 1 MG TAB PO SCH (14:00)
[2017-03-16] MEDS ORDERED: PANTOPRAZOLE SODIUM 40 MG VIAL IV PUSH SCH (14:00)
[2017-03-16] MEDS ORDERED: THIAMINE HCL 100 MG TAB PO SCH (14:00)
[2017-03-16] MEDS ORDERED: MULTIVITAMINS/MINERALS THERAPEUTIC TAB PO SCH (14:00)
[2017-03-16] MEDS ORDERED: ACETAMINOPHEN/HYDROcodone 325 MG/5 MG TAB PO PRN (14:00)
[2017-03-16] MEDS ORDERED: SODIUM CHLORIDE 0.9% FLUSH 10 ML FLUSH IV FLUSH PRN (14:00)
[2017-03-16] MEDS ORDERED: ONDANSETRON HCL 4 MG/2 ML VIAL IVP PRN (14:00)
[2017-03-16] MEDS ORDERED: LORazepam 2 MG TAB PO PRN (14:00)
[2017-03-16] MEDS ORDERED: NALOXONE HCL 0.4 MG/ML AMP IV PRN (14:00)
[2017-03-16] MEDS ORDERED: ENALAPRILAT 1.25 MG/ML VIAL IV PRN (14:30)
[2017-03-16 14:31] VITALS: O2SAT 97
[2017-03-16] MEDS ORDERED: POTASSIUM CHLOR 20 MEQ PREMIX 100 ML IV ONE (15:00)
[2017-03-16] MEDS ORDERED: MAGNESIUM SULFATE 1 GM PREMIX 100 ML IV ONE (15:00)
[2017-03-16] MEDS: CARVEDILOL 3.125 MG TAB PO SCH ×2 (16:10→20:57)
[2017-03-16] MEDS: SODIUM CHLOR 0.9% 1000 ML INJ 1,000 ML IV SCH (16:37)
[2017-03-16 17:00] VITALS: BP 136/64; PULSE 95; RESP 20; TEMP 98; O2SAT 95
[2017-03-16] MEDS: ACETAMINOPHEN/HYDROcodone 325 MG/7.5 MG TAB PO PRN (17:12)
[2017-03-16] MEDS: THIAMINE INJ 100 MG in SODIUM CHLORIDE 0.9% INJ 100 ML IV SCH (18:02)
[2017-03-16] MEDS: MULTIVITAMIN INJ 10 ML, FOLIC ACID INJ 1 MG in SODIUM CHLORID 0.9% 500 ML INJ 500 ML IV SCH (18:49)
[2017-03-16 20:00] VITALS: BP 166/95; PULSE 78; RESP 20; TEMP 98.1; O2SAT 96
[2017-03-16 20:11] VITALS: PULSE 75
[2017-03-16] MEDS: LORazepam 2 MG/ML VIAL IV PUSH PRN (20:56)
[2017-03-16] MEDS: SODIUM CHLORIDE 0.9% FLUSH 10 ML FLUSH IV FLUSH SCH (20:57)
--- NOTE | 2017-03-16 21:49 | EKG ---
Date Performed: 03/16/2017 Time Performed: 13:04:59 PTAGE: 52 years EKG: SINUS TACHYCARDIA ABNORMAL RHYTHM ECG PREVIOUS TRACING : 03/16/2017 11.16 DOCTOR: Aj Lopes Interpretating Date/Time 03/16/2017 21:46:35
--- NOTE | 2017-03-16 21:52 | EKG ---
Date Performed: 03/16/2017 Time Performed: 11:16:12 PTAGE: 52 years EKG: SUPRAVENTRICULAR TACHYCARDIA Possible atrial fibrillation VS atrial flutter ABNORMAL RHYTHM ECG INTERPRETATION BASED ON A DEFAULT AGE OF 40 YEARS PREVIOUS TRACING : 01/20/2017 17.12 DOCTOR: Aj Lopes Interpretating Date/Time 03/16/2017 21:48:55
--- NOTE | 2017-03-16 22:47 | RADRPT ---
EXAM DATE/TIME: 03/16/2017 22:07 [facility] COMPARISON: No previous studies available for comparison. INDICATIONS : Increased labs. MEDICAL HISTORY : Hypertension. Diverticulitis. Hearing loss. Seizures. Afib. Crohn's disease. back pain. anxiety. et oh abuse. SURGICAL HISTORY : Appendectomy. Right arm surgery. Bowel resection. ENCOUNTER: Subsequent ACUITY: 1 day PAIN SCORE: 1/10 LOCATION: Abdomen. MEASUREMENTS: LIVER: 16.5 cm length COMMON DUCT: 5 mm RIGHT KIDNEY: 10.9 x 5.8 x 5.5 cm SPLEEN: 9.7 cm length FINDINGS: LIVER: Increased echotexture without focal lesion or ductal dilatation. COMMON DUCT: No intraluminal mass or stone visualized. GALLBLADDER: Contains no stones, demonstrates no wall thickening or pericholecystic fluid. PANCREAS: The visualized portions are within normal limits. RIGHT KIDNEY: No hydronephrosis, stone or mass. SPLEEN: No focal lesion. CONCLUSION: 1. Fatty liver. No biliary ductal dilatation. Thierno Arellano MD on March 16, 2017 at 22:43 Board Certified Radiologist. This report was verified electronically.
[2017-03-16 22:52] LABS: ALKALINE PHOSPHATASE 107 U/L (45-117); ALT (GPT) 106 U/L (12-78); ANION GAP 10 MEQ/L (5-15); AST (GOT) 91 U/L (15-37); BICARBONATE 26.8 MEQ/L (21.0-32.0); BLOOD UREA NITROGEN 8 MG/DL (7-18); CHLORIDE 98 MEQ/L (98-107); CREATINE KINASE 103 U/L (39-308); GLOMERULAR FILTRATION RATE 103 ML/MIN (>89); POTASSIUM 3.6 MEQ/L (3.5-5.1); SODIUM (NA) 135 MEQ/L (136-145); TOTAL BILIRUBIN ADULT 1.7 MG/DL (0.2-1.0)
[2017-03-17] VITALS (7 sets, daily range): BP systolic 136–187; BP diastolic 87–100; PULSE 70–93; RESP 16–20; TEMP 97.7–98.3; O2SAT 95–98
[2017-03-17] MEDS: LORazepam 2 MG/ML VIAL IV PUSH PRN ×4 (00:31→20:54)
[2017-03-17] MEDS: SODIUM CHLOR 0.9% 1000 ML INJ 1,000 ML IV SCH ×3 (00:32→23:58)
[2017-03-17 08:07] LABS: ALKALINE PHOSPHATASE 106 U/L (45-117); ALT (GPT) 95 U/L (12-78); ANION GAP 8 MEQ/L (5-15); AST (GOT) 88 U/L (15-37); BICARBONATE 27.4 MEQ/L (21.0-32.0); BLOOD UREA NITROGEN 7 MG/DL (7-18); CHLORIDE 101 MEQ/L (98-107); CREATINE KINASE 128 U/L (39-308); GLOMERULAR FILTRATION RATE 106 ML/MIN (>89); MAGNESIUM 1.8 MG/DL (1.5-2.5); SODIUM (NA) 136 MEQ/L (136-145); TOTAL BILIRUBIN ADULT 2.2 MG/DL (0.2-1.0)
[2017-03-17 08:19] LABS: POTASSIUM 4.1 MEQ/L (3.5-5.1)
[2017-03-17] MEDS: SODIUM CHLORIDE 0.9% FLUSH 10 ML FLUSH IV FLUSH SCH ×2 (08:57→21:00)
[2017-03-17] MEDS: CARVEDILOL 3.125 MG TAB PO SCH ×2 (08:57→20:47)
--- NOTE | 2017-03-17 09:37 | HHI.FPPN ---
Subjective Remarks Pt seen and examined this AM. BP elevated overnight but otherwise VS stable. States he is "alright" this morning and feeling better than yesterday. Still endorsing some burning chest pain and epigastric pain; states the Protonix helped initially but then wore off. Had continuous hiccups yesterday that resolved. Denies N/V. Wants to eat something. Denies visual or auditory hallucinations. (Doris Rosas MD R2) Objective Vitals Vital Signs Date Time Temp Pulse Resp B/P Pulse Ox O2 Delivery O2 Flow Rate FiO2 03/17/17 09:00 Room Air 03/17/17 08:00 97.9 77 16 154/94 96 03/17/17 04:00 Room Air 03/17/17 04:00 97.7 70 18 154/88 97 03/17/17 00:00 Room Air 03/17/17 00:00 97.8 76 18 148/96 98 03/16/17 20:11 75 03/16/17 20:00 98.1 78 20 166/95 96 03/16/17 20:00 Room Air 03/16/17 17:00 98.0 95 20 136/64 95 03/16/17 14:31 97 21 03/16/17 11:30 21 97 Room Air 03/16/17 11:30 97 Room Air 03/16/17 11:01 98.5 110 20 165/90 98 Room Air I/O 03/16/17 03/16/17 03/16/17 03/17/17 03/17/17 03/17/17 07:00 15:00 23:00 07:00 15:00 23:00 Intake Total 800 ml 1423 ml Output Total 350 ml 600 ml Balance 450 ml 823 ml Intake Oral 0 ml 100 ml IV Total 800 ml 1323 ml Output Urine Total 350 ml 600 ml # Bowel Movements 0 0 (Doris Rosas MD R2) Result Diagram: 03/16/17 1135 03/17/17 0659 Objective Remarks GENERAL: Disheveled male laying comfortably in bed in NAD. SKIN: Warm and dry. HEART: IRR no m/r/g. LUNGS: CTAB without wheezes or crackles. EXTREMITIES: SCDs in place NEURO: Awake and alert. Mild bilateral hand tremors. (Doris Rosas MD R2) A/P Assessment and Plan 52-year-old male with history of alcohol abuse and A. fib. Admitted for alcohol withdrawal and ACS evaluation. Discharge Planning Tomorrow pending improvement in appetite and withdrawal symptoms sdw Dr. Kraft and Dr. Torres (Doris Rosas MD R2) Attending Attestation Patient seen and examined. Case reviewed and discussed with the resident team. Agree with plan of care as discussed with me and documented in the resident note (Erich Kraft MD) Problem List: (1) Alcohol withdrawal Status: Acute Plan: History of alcohol abuse with binge drinking. Patient reports that his last drink was 2 days ago however alcohol level was 33 on admission. Does have small tremors on exam. History of hallucinations and reports hallucinations presently. 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 -CIWA protocol, seizure precautions, neuro checks -IV rally pack, will transition to PO tomorrow -Monitor electrolytes -UDS was not obtained (2) Atrial fibrillation Status: Chronic Plan: Appears to be chronic. Patient is rate controlled. Upon chart review, he was previously discharged with carvedilol 3.125 mg BID but he has not been taking it. Additionally, recent alcohol use may have exacerbated symptoms. [id number] Score 0. -Resume Coreg 3.125mg BID -Does not need anticoagulation therapy -Cardiac telemetry (3) Alcoholic gastritis without bleeding Status: Acute Plan: Symptoms of chest pain and epigastric abdominal pain likely due to alcoholic gastritis. -ACS evaluation negative -Carafate and Protonix (4) Elevated liver enzymes Status: Acute Plan: Elevated liver enzymes but with normal INR. Has had prior hepatitis testing which was negative in 2012. Lipase negative. DDX includes alcoholic hepatitis vs viral hepatitis vs fatty liver -Liver enzymes downtrending -Hepatitis panel pending -Liver ultrasound indicative of fatty liver (5) Nutrition, metabolism, and development symptoms Status: Acute Plan: Diet: Full with ensure supplementation Fluids: NS at 70 Electrolytes: Abnormalities Resolved, continue to closely monitor DVT prophylaxis: Lovenox GI prophylaxis: Protonix due to possible alcoholic gastritis (Doris Rosas MD R2) Doris Rosas MD R2 March 17, 2017 09:37 Erich Kraft MD March 17, 2017 20:10
[2017-03-17] MEDS: SUCRALFATE 1 GM/10 ML CUP PO SCH ×3 (10:02→20:47)
[2017-03-17] MEDS: ENOXAPARIN SODIUM 40 MG/0.4 ML SYRINGE SQ SCH (10:02)
--- NOTE | 2017-03-17 10:39 | EKG ---
Date Performed: 03/16/2017 Time Performed: 21:56:34 PTAGE: 52 years EKG: Sinus rhythm NORMAL ECG PREVIOUS TRACING : 03/16/2017 13.04 DOCTOR: Aj Lopes Interpretating Date/Time 03/17/2017 10:38:28
[2017-03-17] MEDS: THIAMINE INJ 100 MG in SODIUM CHLORIDE 0.9% INJ 100 ML IV SCH (13:43)
[2017-03-17] MEDS: MULTIVITAMIN INJ 10 ML, FOLIC ACID INJ 1 MG in SODIUM CHLORID 0.9% 500 ML INJ 500 ML IV SCH (14:57)
[2017-03-17] MEDS: ACETAMINOPHEN/HYDROcodone 325 MG/7.5 MG TAB PO PRN ×2 (14:57→20:48)
[2017-03-17] MEDS: PANTOPRAZOLE SOD 40 MG DELAYED RELEASE TAB PO SCH (20:47)
[2017-03-18] VITALS: BP 137/73; PULSE 81; RESP 18; TEMP 97.9; O2SAT 95
[2017-03-18 04:00] VITALS: BP 151/84; PULSE 85; RESP 18; TEMP 98.5; O2SAT 96
[2017-03-18] MEDS: SUCRALFATE 1 GM/10 ML CUP PO SCH (06:34)
[2017-03-18] MEDS: ACETAMINOPHEN/HYDROcodone 325 MG/7.5 MG TAB PO PRN (06:34)
[2017-03-18 07:31] LABS: ALKALINE PHOSPHATASE 97 U/L (45-117); ALT (GPT) 76 U/L (12-78); ANION GAP 9 MEQ/L (5-15); AST (GOT) 50 U/L (15-37); BICARBONATE 26.1 MEQ/L (21.0-32.0); BLOOD UREA NITROGEN 12 MG/DL (7-18); CHLORIDE 102 MEQ/L (98-107); GLOMERULAR FILTRATION RATE 117 ML/MIN (>89); POTASSIUM 3.2 MEQ/L (3.5-5.1); SODIUM (NA) 137 MEQ/L (136-145); TOTAL BILIRUBIN ADULT 1.1 MG/DL (0.2-1.0)
[2017-03-18 08:00] VITALS: BP 152/93; PULSE 77; RESP 18; TEMP 98.3; O2SAT 97
--- NOTE | 2017-03-18 08:18 | HHI.DCPOC ---
Discharge Care Plan Diagnosis: (1) Alcohol withdrawal (2) Alcohol intoxication Goals to Promote Your Health * To prevent worsening of your condition and complications * To maintain your health at the optimal level Directions to Meet Your Goals Take your medications as prescribed Follow your dietary instruction Follow activity as directed Keep your appointments as scheduled Take your immunizations and boosters as scheduled If your symptoms worsen call your PCP, if no PCP go to Urgent Care Center or Emergency Room Smoking is Dangerous to Your Health. Avoid second hand smoke Call the 24-hour hour crisis hotline for domestic abuse at Jesus Alberto Kenny MD R2 March 18, 2017 08:18
--- NOTE | 2017-03-18 08:22 | HHI.FPPN ---
Subjective Remarks Patient is doing better this morning. He is walking to the bathroom and around the room. Denies fevers, chills, diarrhea, abdominal pain. Agreeable to discharge. Objective Vitals Vital Signs Date Time Temp Pulse Resp B/P Pulse Ox O2 Delivery O2 Flow Rate FiO2 03/18/17 08:00 98.3 77 18 152/93 97 03/18/17 04:00 98.5 85 18 151/84 96 03/18/17 00:00 Room Air 03/18/17 00:00 97.9 81 18 137/73 95 03/17/17 21:37 21 03/17/17 20:40 Room Air 03/17/17 20:00 86 03/17/17 20:00 98.3 86 18 164/97 97 03/17/17 16:00 98.2 93 16 136/87 95 03/17/17 12:11 21 03/17/17 12:01 Room Air 03/17/17 12:00 97.9 82 20 187/100 97 03/17/17 09:00 Room Air 03/17/17 08:38 74 I/O 03/17/17 03/17/17 03/17/17 03/18/17 03/18/17 03/18/17 07:00 15:00 23:00 07:00 15:00 23:00 Intake Total 1423 ml 514 ml 1647 ml 898 ml Output Total 600 ml 1000 ml Balance 823 ml 514 ml 647 ml 898 ml Intake Oral 100 ml 840 ml 240 ml IV Total 1323 ml 514 ml 807 ml 658 ml Output Urine Total 600 ml 1000 ml # Voids 2 2 # Bowel Movements 0 1 1 Result Diagram: 03/16/17 1135 03/18/17 0621 Objective Remarks GENERAL: Disheveled male laying comfortably in bed in NAD. SKIN: Warm and dry. HEART: Normal rate, no murmurs or gallops LUNGS: CTAB without wheezes or crackles. EXTREMITIES: SCDs in place NEURO: Awake and alert. Mild bilateral hand tremors. A/P Assessment and Plan 52-year-old male with history of alcohol abuse and A. fib. Admitted for alcohol withdrawal and ACS evaluation. Discharge Planning Today Problem List: (1) Alcohol withdrawal Status: Acute Plan: -CIWA protocol, seizure precautions, neuro checks -IV rally pack, will transition to PO tomorrow -Monitor electrolytes -UDS was not obtained (2) Atrial fibrillation Status: Chronic Plan: Appears to be chronic. Patient is rate controlled. Upon chart review, he was previously discharged with carvedilol 3.125 mg BID but he has not been taking it. Additionally, recent alcohol use may have exacerbated symptoms. [id number] Score 0. -Resume Coreg 3.125mg BID -Does not need anticoagulation therapy -Cardiac telemetry (3) Alcoholic gastritis without bleeding Status: Acute Plan: Symptoms of chest pain and epigastric abdominal pain likely due to alcoholic gastritis. -ACS evaluation negative -Carafate and Protonix (4) Elevated liver enzymes Status: Acute Plan: Elevated liver enzymes but with normal INR. Has had prior hepatitis testing which was negative in 2012. Lipase negative. DDX includes alcoholic hepatitis vs viral hepatitis vs fatty liver -Liver enzymes downtrending -Hepatitis panel pending- panel should be forwarded to patient at the address given and/or phone call with results -Liver ultrasound indicative of fatty liver (5) Nutrition, metabolism, and development symptoms Status: Acute Plan: Diet: Full with ensure supplementation Fluids: Tolerating by mouth Electrolytes: Replace when necessary DVT prophylaxis: Lovenox GI prophylaxis: Protonix due to possible alcoholic gastritis Jesus Alberto Kenny MD R2 March 18, 2017 08:22
[2017-03-18] MEDS: SODIUM CHLORIDE 0.9% FLUSH 10 ML FLUSH IV FLUSH SCH (08:23)
[2017-03-18] MEDS: CARVEDILOL 3.125 MG TAB PO SCH (08:23)
[2017-03-18] MEDS: PANTOPRAZOLE SOD 40 MG DELAYED RELEASE TAB PO SCH (08:23)
[2017-03-18] MEDS: ENOXAPARIN SODIUM 40 MG/0.4 ML SYRINGE SQ SCH (08:23)
[2017-03-18] MEDS ORDERED: POTASSIUM CHLORIDE 25 MEQ EFFERVESCENT TAB PO ONE (08:30)
[2017-03-20] MEDS ORDERED: THIAMINE HCL 100 MG TAB PO SCH (09:00)
== END 2017-03-18 09:43 | disposition home or self-care (01) | DRG 897 ==
LOC: NEPC 10:59 → NEDA 13:01 → OBSVTOIN 13:01 → N04A 16:11
PROVIDERS: ADMIT Family Medicine; ATTEND Family Medicine
DX: F10.239 Alcohol dependence with withdrawal, unspecified (principal); K76.0 Fatty (change of) liver, not elsewhere classified; I48.2 Chronic atrial fibrillation; K29.20 Alcoholic gastritis without bleeding; Y90.1 Blood alcohol level of 20-39 mg/100 ml
CPT/HCPCS: 71010; 76705; 80053; 80074; 80307; 82550; 82948; 83690; 83735; 84100; 84484; 85025; 85610; 85730; 93005; 96361; 96374; C9113; J1650; J2060; J3411; J3475; J3480; J7030; J7040

== ENCOUNTER 2017-06-05 13:18 | Inpatient (IN) | payer MEDICAID ==
[~2017-06-05] VITALS: Ht 170.2 cm; Wt 71.2 kg
[2017-06-05] VITALS (12 sets, daily range): BP systolic 103–184; BP diastolic 63–86; PULSE 94–183; RESP 14–23; TEMP 98–98.8; O2SAT 95–99
[~2017-06-05 13:18] MED LIST changes: -NITR0.4S SL; -THERM PO
[2017-06-05] MEDS ORDERED: SODIUM CHLORIDE 0.9% FLUSH 10 ML FLUSH IVF PRN ×2 (13:45)
[2017-06-05] MEDS ORDERED: LORazepam 2 MG/ML VIAL IV PUSH ONE (14:00)
--- NOTE | 2017-06-05 14:02 | PD ---
HPI Chief Complaint: Cardiac Complaint Time Seen by Provider: 13:37 Travel History International Travel<30 days: No Contact w/Intl Traveler<30days: No Traveled to known affect area: No History of Present Illness HPI 52-year-old male with a history of Crohn's disease, alcohol abuse, atrial fibrillation, who presents today with complaints of shortness of breath and dizziness. The patient was found to be in rapid A. fib with a rate of 170s. Patient denies any chest pain, chest pressure. He does report palpitations. Patient also reports nausea and vomiting 2-3 days. There is no reported fevers , chills. There is no blood in his vomit. There is no dark tarry stools noted. PFSH Past Medical History Arthritis: No Asthma: No Atrial Fibrillation: Yes Autoimmune Disease: No Blood Disorders: No Anxiety: Yes Depression: No Heart Rhythm Problems: Yes Cancer: No Cardiovascular Problems: Yes (a-fib) High Cholesterol: No Chest Pain: Yes Congestive Heart Failure: No COPD: No Cerebrovascular Accident: No Diabetes: No Diminished Hearing: Yes Diverticulitis: Yes Endocrine: No Gastrointestinal Disorders: Yes (CHRONES) GERD: No Genitourinary: No Headaches: No Hiatal Hernia: No Hypertension: Yes Immune Disorder: No Implanted Vascular Access Dvce: Yes Musculoskeletal: Yes Neurologic: Yes (seizures) Psychiatric: Yes Reproductive: No Respiratory: No Immunizations Current: No Migraines: No Seizures: Yes (R/T ETOH few years ago) Sleep Apnea: No Thyroid Disease: No Ulcer: No Tetanus Vaccination: > 5 Years PNEUMOCCOCAL Vaccine (Year): 1 Past Surgical History Abdominal Surgery: Yes (REMOVED PART OF LOWER INTESTINE) Appendectomy: Yes Arteriovenous Shunt: No Body Medical Devices: rods in right shoulder Cardiac Surgery: No Ear Surgery: No Endocrine Surgery: No Eye Surgery: No Genitourinary Surgery: No Gynecologic Surgery: No Neurologic Surgery: No Pacemaker: No Thoracic Surgery: No Other Surgery: Yes (COLON RESECTION) Social History Alcohol Use: Yes (12 pack of beer and a couple pints of whiskey) Tobacco Use: No Substance Use: No Allergies-Medications (Allergen,Severity, Reaction): Coded Allergies: Lactose (Verified Allergy, Severe, DIARRHEA, 06/05/17) *MDRO Multi-Drug Resistant Organism (Verified Allergy, Unknown, 06/05/17) MRSA (buttock wound) - 06/2013 MRSA PCR screen negative 01/10/16 Penicillin (Verified Allergy, Unknown, UNKNOWN, 06/05/17) Reported Meds & Prescriptions Reported Meds & Active Scripts Active Review of Systems Except as stated in HPI: all other systems reviewed are Neg HENT: Positive: Lightheadedness, No: Headaches Cardiovascular: Positive: Palpitations, Irregular Rhythm (history of atrial fibrillation), No: Chest Pain or Discomfort Respiratory: Positive: Shortness of Breath, No: Cough Gastrointestinal: Positive: Nausea, Vomiting, No: Diarrhea, Abdominal Pain Genitourinary: No: Decreased Urinary Output, Incontinence Musculoskeletal: Positive: Weakness (generalized), No: Pain Skin: No Dryness, No Lesions Neurologic: Positive: Weakness, Dizziness, No: Syncope, Headache Physical Exam Narrative GENERAL: Well-developed male whose obviously tremulous with mild respiratory distress SKIN: Focused skin assessment warm/dry. HEAD: Atraumatic. Normocephalic. EYES: Pupils equal and round. No scleral icterus. No injection or drainage. ENT: No nasal bleeding or discharge. Mucous membranes pink and moist. NECK: Trachea midline. Supple. CARDIOVASCULAR: Irregularly irregular with a rate in the 170s. No obvious murmur appreciated. RESPIRATORY: No accessory muscle use. Clear to auscultation. Breath sounds equal bilaterally. GASTROINTESTINAL: Abdomen soft, non-tender, nondistended. MUSCULOSKELETAL: No obvious deformities. No clubbing. No cyanosis. No edema. NEUROLOGICAL: Awake and anxious. No obvious cranial nerve deficits. Motor grossly within normal limits. Normal speech. Very tremulous. Data Data Last Documented VS Vital Signs Date Time Temp Pulse Resp B/P Pulse Ox O2 Delivery O2 Flow Rate FiO2 06/05/17 16:03 133 18 119/85 06/05/17 15:37 98 Nasal Cannula 2 06/05/17 13:41 98.0 Orders Electrocardiogram (06/05/17 13:43) Basic Metabolic Panel (Bmp) (06/05/17 13:43) Ckmb (Isoenzyme) Profile (06/05/17 13:43) Complete Blood Count With Diff (06/05/17 13:43) Magnesium (Mg) (06/05/17 13:43) Prothrombin Time / Inr (Pt) (06/05/17 13:43) Act Partial Throm Time (Ptt) (06/05/17 13:43) Troponin I (06/05/17 13:43) Chest, Single Ap (06/05/17 13:43) Ecg Monitoring (06/05/17 13:43) Bilateral Bp Monitoring (06/05/17 13:43) Iv Access Insert/Monitor (06/05/17 13:43) Oximetry (06/05/17 13:43) Oxygen Administration (06/05/17 13:43) Sodium Chloride 0.9% Flush (Ns Flush) (06/05/17 13:45) Diltiazem Inj (Cardizem Inj) (06/05/17 13:45) Sodium Chloride 0.9% Flush (Ns Flush) (06/05/17 13:45) Lorazepam Inj (Ativan Inj) (06/05/17 14:00) Diltiazem Inj (Cardizem Inj) (06/05/17 14:30) CKMB (06/05/17 13:50) CKMB% (06/05/17 13:50) Diltiazem Inj (Cardizem Inj) (06/05/17 15:45) Metoprolol Tartrate Inj (Lopressor Inj) (06/05/17 16:00) Admit Order (Ed Use Only) (06/05/17 16:21) Labs Laboratory Tests Test 06/05/17 13:50 White Blood Count 6.9 TH/MM3 Red Blood Count 5.01 MIL/MM3 Hemoglobin 15.6 GM/DL Hematocrit 44.6 % Mean Corpuscular Volume 89.0 FL Mean Corpuscular Hemoglobin 31.2 PG Mean Corpuscular Hemoglobin 35.0 % Concent Red Cell Distribution Width 16.0 % Platelet Count 75 TH/MM3 Mean Platelet Volume 7.4 FL Neutrophils (%) (Auto) 80.8 % Lymphocytes (%) (Auto) 8.8 % Monocytes (%) (Auto) 9.4 % Eosinophils (%) (Auto) 0.3 % Basophils (%) (Auto) 0.7 % Neutrophils # (Auto) 5.5 TH/MM3 Lymphocytes # (Auto) 0.6 TH/MM3 Monocytes # (Auto) 0.6 TH/MM3 Eosinophils # (Auto) 0.0 TH/MM3 Basophils # (Auto) 0.1 TH/MM3 CBC Comment AUTO DIFF Differential Comment AUTO DIFF CONFIRMED Platelet Estimate LOW Platelet Morphology Comment NORMAL Prothrombin Time 11.9 SEC Prothromb Time International 1.1 RATIO Ratio Activated Partial 28.9 SEC Thromboplast Time Sodium Level 133 MEQ/L Potassium Level 3.9 MEQ/L Chloride Level 91 MEQ/L Carbon Dioxide Level 21.7 MEQ/L Anion Gap 20 MEQ/L Blood Urea Nitrogen 11 MG/DL Creatinine 0.90 MG/DL Estimat Glomerular Filtration 89 ML/MIN Rate Random Glucose 162 MG/DL Calcium Level 8.8 MG/DL Magnesium Level 1.7 MG/DL Total Creatine Kinase 381 U/L Creatine Kinase MB 6.5 NG/ML Creatine Kinase MB % 1.7 % Troponin I LESS THAN 0.02 NG/ML MDM Medical Decision Making Medical Screen Exam Complete: Yes Emergency Medical Condition: Yes Differential Diagnosis A. fib with RVR versus anemia versus metabolic derangement versus alcohol withdrawal Narrative Course 52-year-old male history of A. fib, alcohol abuse, Crohn's disease, presents today with complaints of A. fib with RVR. The patient was given 20 mg of diltiazem by EMS. Patient remained in A. fib with RVR with a rate in the 170s 180s. The patient was given 2 boluses of Cardizem here and placed on a Cardizem drip. Despite that he was still in the 130s. The patient was then given 5 mg of IVD Lopressor which brought his heart rate down into the low 100s. [facility] is [facility] college [facility] the [facility]. Diagnosis Primary Impression: Atrial fibrillation with rapid ventricular response Additional Impressions: EtOH withdrawal Nausea & vomiting Admitting Information Admitting Physician Requests: Admit Scripts No Active Prescriptions or Reported Meds Micah Jimenez MD Jun 05, 2017 14:02
[2017-06-05 14:06] LABS: AUTOMATED NEUTROPHIL # 5.5 TH/MM3 (1.8-7.7); BASOPHIL # 0.1 TH/MM3 (0-0.2); BASOPHIL % 0.7 % (0.0-2.0); EOSINOPHIL % 0.3 % (0.0-4.0); HEMATOCRIT 44.6 % (39.0-51.0); LYMPH % 8.8 % (9.0-44.0); LYMPHOCYTE # 0.6 TH/MM3 (1.0-4.8); MEAN CORPUSCULAR HEMOGLOBIN 31.2 PG (27.0-34.0); MONO % 9.4 % (0.0-8.0); NEUT % 80.8 % (16.0-70.0); PLATELET COUNT 75 TH/MM3 (150-450); RED BLOOD COUNT 5.01 MIL/MM3 (4.50-5.90); WHITE BLOOD COUNT 6.9 TH/MM3 (4.0-11.0)
[2017-06-05 14:08] LABS: HEMO FLAGS AUTO DIFF
[2017-06-05] MEDS ORDERED: DILTIAZEM HCL 50 MG/10 ML VIAL IV PUSH ONE ×2 (14:15→15:45)
[2017-06-05 14:17] LABS: APTT (PATIENT) 28.9 SEC (24.3-30.1); INTERNATIONAL NORMALIZED RATIO 1.1 RATIO; PROTHROMBIN TIME - PATIENT 11.9 SEC (9.8-11.6)
--- NOTE | 2017-06-05 14:18 | RADRPT ---
EXAM DATE/TIME: 06/05/2017 13:54 [facility] COMPARISON: CHEST SINGLE AP, March 16, 2017, 11:50. INDICATIONS : Palpitations. MEDICAL HISTORY : atrial fibrillation SURGICAL HISTORY : None. ENCOUNTER: Initial ACUITY: 1 day PAIN SCORE: 0/10 LOCATION: Bilateral chest FINDINGS: A single view of the chest demonstrates the lungs to be symmetrically aerated without evidence of mas s, infiltrate or effusion. The cardiomediastinal contours are unremarkable. Osseous structures are intact. CONCLUSION: No acute disease. Raj Tovar MD FACR on June 05, 2017 at 14:14 Board Certified Radiologist. This report was verified electronically.
[2017-06-05 14:26] LABS: ANION GAP 20 MEQ/L (5-15); BICARBONATE 21.7 MEQ/L (21.0-32.0); BLOOD UREA NITROGEN 11 MG/DL (7-18); CHLORIDE 91 MEQ/L (98-107); GLOMERULAR FILTRATION RATE 89 ML/MIN (>89); MAGNESIUM 1.7 MG/DL (1.5-2.5); POTASSIUM 3.9 MEQ/L (3.5-5.1); SODIUM (NA) 133 MEQ/L (136-145)
[2017-06-05 14:29] LABS: CREATINE KINASE 381 U/L (39-308)
[2017-06-05] MEDS ORDERED: DILTIAZEM HCL 25 MG/5 ML VIAL IV PUSH ONE (14:30)
[2017-06-05 14:41] LABS: CKMB 6.5 NG/ML (0.5-3.6)
[2017-06-05] MEDS: DILTIAZEM INJ 125 MG in SODIUM CHLORIDE 0.9% INJ 100 ML IV SCH (14:44)
[2017-06-05 14:50] LABS: PLATELET ESTIMATE SMEAR LOW (NORMAL); PLATELET MORPHOLOGY NORMAL (NORMAL); SCAN/DIFF AUTO DIFF CONFIRMED
[2017-06-05] MEDS ORDERED: DILTIAZEM HCL 25 MG/5 ML VIAL IV ONE (15:45)
[2017-06-05] MEDS ORDERED: METOPROLOL TARTRATE 5 MG/5 ML VIAL IV PUSH ONE (16:00)
[2017-06-05] MEDS ORDERED: SODIUM CHLOR 0.9% 1000 ML INJ 1,000 ML IV ONE (16:30)
[2017-06-05] MEDS ORDERED: LORazepam 2 MG/ML VIAL IV PUSH PRN ×3 (16:30)
[2017-06-05] MEDS ORDERED: FLUMAZENIL 0.5 MG/5 ML VIAL IV PUSH PRN (16:30)
[2017-06-05] MEDS ORDERED: LORazepam 2 MG TAB PO PRN (16:30)
--- NOTE | 2017-06-05 16:37 | HHI.HP ---
[facility] No Primary Care Physician Admission Diagnosis atrial fibrillation with rvr, alcohol withdrawal Diagnoses: (1) Atrial fibrillation with RVR Diagnosis: Principal Chief Complaint: dizziness Travel History International Travel<30 Days: No Contact w/Intl Traveler <30 Da: No Traveled to Known Affected Are: No History of Present Illness patient is a 52 y/o male with history of atrial fibrillation and alcohol abuse who presented to ER with dizziness. he says that his last drink was three days ago. he started to feel dizzy earlier today. he has a history of atrial fibrillation but he's not taking any medication. he had some vague epigastric/ chest pain earlier along with some nausea. Review of Systems Constitutional: COMPLAINS OF: Dizziness, DENIES: Fever, Weight loss, Chills, Night Sweats Eyes: DENIES: Blurred vision, Diplopia, Vision loss, Double Vision Ears, nose, mouth, throat: DENIES: Tinnitus, Vertigo, Throat pain, Epistaxis Respiratory: DENIES: Apneas, Cough, Snoring, Wheezing, Hemoptysis, Sputum production, Shortness of breath Cardiovascular: COMPLAINS OF: Chest pain, DENIES: Palpitations, Syncope, Dyspnea on Exertion, PND, Lower Extremity Edema, Orthopnea, Claudication Gastrointestinal: COMPLAINS OF: Nausea, DENIES: Abdominal pain, Black stools, Bloody stools, Constipation, Diarrhea, Vomiting, Difficulty Swallowing, Anorexia Genitourinary: DENIES: Urinary frequency, Urgency, Hematuria, Dysuria Musculoskeletal: DENIES: Joint pain, Muscle aches, Stiffness, Joint Swelling Integumentary: DENIES: Rash Neurologic: DENIES: Abnormal gait, Headache, Localized weakness, Paresthesias, Seizures, Speech Problems, Tremor, Poor Balance Psychiatric: DENIES: Anxiety, Confusion, Mood changes, Depression, Hallucinations, Agitation, Suicidal Ideation, Homicidal Ideation, Delusions Past Family Social History Past Medical History atrial fibrillation Crohn's disease Past Surgical History colon resection Reported Medications none Allergies: Coded Allergies: Lactose (Verified Allergy, Severe, DIARRHEA, 06/05/17) *MDRO Multi-Drug Resistant Organism (Verified Allergy, Unknown, 06/05/17) MRSA (buttock wound) - 06/2013 MRSA PCR screen negative 01/10/16 Penicillin (Verified Allergy, Unknown, UNKNOWN, 06/05/17) Active Ordered Medications Current Medications Sodium Chloride 2 ml 2 ml UNSCH PRN IVF FLUSH AFTER USING IV ACCESS Last administered on 06/05/17 15:37; Start 06/05/17 at 13:45 Diltiazem HCl/ Sodium Chloride (Cardizem Inj/NS Inj) 125 ml @ 0 mls/hr TITRATE IV Last administered on 06/05/17 14:44; Start 06/05/17 at 13:45 Sodium Chloride (NS Flush) 2 ml UNSCH PRN IVF FLUSH AFTER USING IV ACCESS; Start 06/05/17 at 13:45 Diltiazem HCl (Cardizem Inj) 25 mg BOLUS ONCE IV PUSH ; Start 06/05/17 at 14:15 ; Stop 06/05/17 at 14:16; Status Cancel Lorazepam (Ativan Inj) 2 mg ONCE ONCE IV PUSH Last administered on 06/05/17 14:23; Start 06/05/17 at 14:00; Stop 06/05/17 at 14:01; Status DC Diltiazem HCl (Cardizem Inj) 25 mg ONCE ONCE IV PUSH Last administered on 06/05 14:38; Start 06/05/17 at 14:30; Stop 06/05/17 at 14:31; Status DC Diltiazem HCl (Cardizem Inj) 25 mg BOLUS ONCE IV PUSH ; Start 06/05/17 at 15:45 ; Stop 06/05/17 at 15:46; Status Cancel Diltiazem HCl (Cardizem Inj) 25 mg BOLUS ONCE IV Last administered on 15:36; Start 06/05/17 at 15:45; Stop 06/05/17 at 15:46 Metoprolol Tartrate (Lopressor Inj) 5 mg ONCE ONCE IV PUSH Last administered on 06/05/17 16:03; Start 06/05/17 at 16:00; Stop 06/05/17 at 16:01 Family History not significant. Social History doesn't smoke but drinks ' whenever he can'. Physical Exam Vital Signs Vital Signs Date Time Temp Pulse Resp B/P Pulse Ox O2 Delivery O2 Flow Rate FiO2 06/05/17 16:03 133 18 119/85 06/05/17 15:37 131 23 106/69 98 Nasal Cannula 2 06/05/17 15:15 165 17 184/81 97 Nasal Cannula 2 06/05/17 15:05 182 19 124/77 98 Nasal Cannula 2 06/05/17 14:38 96 Nasal Cannula 2 06/05/17 14:38 97 Room Air 06/05/17 13:41 98.0 183 14 175/86 98 Room Air Physical Exam GENERAL: This is a well-nourished, well-developed patient, in no apparent distress. HEAD: Atraumatic. Normocephalic. No temporal or scalp tenderness. EYES: Pupils equal round and reactive. Extraocular motions intact. No scleral icterus. No injection or drainage. ENT: Nose without bleeding, purulent drainage or septal hematoma. Throat without erythema, tonsillar hypertrophy or exudate. Uvula midline. Airway patent. NECK: Trachea midline. No JVD or lymphadenopathy. Supple, nontender, no meningeal signs. CARDIOVASCULAR: tachycardic with irregular rhythm RESPIRATORY: Clear to auscultation. Breath sounds equal bilaterally. No wheezes , rales, or rhonchi. GASTROINTESTINAL: Abdomen soft, non-tender, nondistended. No hepato-splenomegaly , or palpable masses. No guarding. MUSCULOSKELETAL: Extremities without clubbing, cyanosis, or edema. No joint tenderness, effusion, or edema noted. No calf tenderness. Negative Homans sign bilaterally. NEUROLOGICAL: Awake and alert. Cranial nerves II through XII intact. Motor and sensory grossly within normal limits. Five out of 5 muscle strength in all muscle groups. Normal speech. Laboratory Laboratory Tests Test 06/05/17 13:50 White Blood Count 6.9 Red Blood Count 5.01 Hemoglobin 15.6 Hematocrit 44.6 Mean Corpuscular Volume 89.0 Mean Corpuscular Hemoglobin 31.2 Mean Corpuscular Hemoglobin 35.0 Concent Red Cell Distribution Width 16.0 Platelet Count 75 Mean Platelet Volume 7.4 Neutrophils (%) (Auto) 80.8 Lymphocytes (%) (Auto) 8.8 Monocytes (%) (Auto) 9.4 Eosinophils (%) (Auto) 0.3 Basophils (%) (Auto) 0.7 Neutrophils # (Auto) 5.5 Lymphocytes # (Auto) 0.6 Monocytes # (Auto) 0.6 Eosinophils # (Auto) 0.0 Basophils # (Auto) 0.1 CBC Comment AUTO DIFF Differential Comment AUTO DIFF CONFIRMED Platelet Estimate LOW Platelet Morphology Comment NORMAL Prothrombin Time 11.9 Prothromb Time International 1.1 Ratio Activated Partial 28.9 Thromboplast Time Sodium Level 133 Potassium Level 3.9 Chloride Level 91 Carbon Dioxide Level 21.7 Anion Gap 20 Blood Urea Nitrogen 11 Creatinine 0.90 Estimat Glomerular Filtration 89 Rate Random Glucose 162 Calcium Level 8.8 Magnesium Level 1.7 Total Creatine Kinase 381 Creatine Kinase MB 6.5 Creatine Kinase MB % 1.7 Troponin I LESS THAN 0.02 Result Diagram: 06/05/17 1350 06/05/17 1350 Imaging Last Impressions Chest X-Ray 06/05/17 1343 Signed Impressions: Service Date/Time: Monday, June 05, 2017 13:54 - CONCLUSION: No acute disease. Raj Tovar MD FACR EKG; atrial fibrillation with rapid ventricular rate Assessment and Plan Assessment and Plan A/P - atrial fibrillation with rapid ventricular rate- noncompliant with the medical treatment started on Cardizem drip - will start on po cardizem and try to taper off the cardizem drip -alcohol abuse CIWA protocol- start on thiamine and multivitamin- counselled on drinking cessation. -DVT prophylaxis with SCD's Discussed Condition With ER and the patient. Physician Certification 2 Midnight Certification Type: Admission for Inpatient Services Order for Inpatient Services The services are ordered in accordance with Medicare regulations or non- Medicare payer requirements, as applicable. In the case of services not specified as inpatient-only, they are appropriately provided as inpatient services in accordance with the 2-midnight benchmark. Estimated LOS (days): 2 days is the estimated time the patient will need to remain in the hospital, assuming treatment plan goals are met and no additional complications. Post-Hospital Plan: Home Braxotn Harman MD Jun 05, 2017 16:37
[2017-06-05] MEDS: THIAMINE INJ 100 MG in SODIUM CHLORIDE 0.9% INJ 100 ML IV SCH (17:57)
[2017-06-05] MEDS: DILTIAZEM HCL 30 MG TAB PO SCH ×2 (19:07→22:51)
[2017-06-05] MEDS: LORazepam 1 MG TAB PO PRN (19:22)
[2017-06-05] MEDS: LORazepam 2 MG/ML VIAL IV PUSH PRN (23:58)
[2017-06-06] VITALS (7 sets, daily range): BP systolic 97–114; BP diastolic 57–70; PULSE 84–133; RESP 18–20; TEMP 97.4–99.1; O2SAT 94–97
[2017-06-06] MEDS: DILTIAZEM INJ 125 MG in SODIUM CHLORIDE 0.9% INJ 100 ML IV SCH ×3 (01:30→16:11)
[2017-06-06] MEDS: THIAMINE INJ 100 MG in SODIUM CHLORIDE 0.9% INJ 100 ML IV SCH (07:51)
[2017-06-06] MEDS: MULTIVITAMIN TAB PO SCH (07:52)
[2017-06-06] MEDS: DILTIAZEM HCL 30 MG TAB PO SCH ×3 (07:52→12:42)
[2017-06-06] MEDS: METOPROLOL TARTRATE 25 MG TAB PO SCH ×2 (11:45→21:14)
--- NOTE | 2017-06-06 11:45 | HHI.PR ---
Subjective Remarks f/u; atrial fibrillation in no acute distress. no chest pain but has mild sob. HR still elevated despite Cardizem drip. d/w the RN. Objective Vitals Vital Signs Date Time Temp Pulse Resp B/P Pulse Ox O2 Delivery O2 Flow Rate FiO2 06/06/17 08:00 98.2 97 18 114/59 94 06/06/17 04:00 Nasal Cannula 2.00 06/06/17 04:00 98.1 132 20 102/70 97 06/06/17 00:02 118 06/06/17 00:00 Room Air 06/06/17 00:00 98.3 126 20 107/63 97 06/05/17 21:21 94 06/05/17 20:56 Room Air 06/05/17 20:56 98.8 102 20 107/68 96 06/05/17 19:16 138 20 110/72 95 Nasal Cannula 2 06/05/17 17:31 149 20 103/68 97 Nasal Cannula 2 06/05/17 17:13 111 22 115/72 99 Nasal Cannula 2 06/05/17 16:41 117 16 119/63 98 Nasal Cannula 2 06/05/17 16:03 133 18 119/85 06/05/17 15:37 131 23 106/69 98 Nasal Cannula 2 06/05/17 15:15 165 17 184/81 97 Nasal Cannula 2 06/05/17 15:05 182 19 124/77 98 Nasal Cannula 2 06/05/17 14:38 96 Nasal Cannula 2 06/05/17 14:38 97 Room Air 06/05/17 13:41 98.0 183 14 175/86 98 Room Air I/O 06/05/17 06/05/17 06/05/17 06/06/17 06/06/17 06/06/17 07:00 15:00 23:00 07:00 15:00 23:00 Intake Total 1027 ml 1028 ml Output Total 400 ml Balance 627 ml 1028 ml Intake Oral 360 ml 330 ml IV Total 667 ml 698 ml Output Urine Total 400 ml # Bowel Movements 0 Result Diagram: 06/05/17 1350 06/05/17 1350 Imaging Last Impressions Chest X-Ray 06/05/17 1343 Signed Impressions: Service Date/Time: Monday, June 05, 2017 13:54 - CONCLUSION: No acute disease. Raj Tovar MD FACR Objective Remarks GENERAL: This is a well-nourished, well-developed patient, in no apparent distress. CARDIOVASCULAR: tachycardic with irregular rhythm without murmurs, gallops, or rubs. RESPIRATORY: Clear to auscultation. Breath sounds equal bilaterally. No wheezes , rales, or rhonchi. GASTROINTESTINAL: Abdomen soft, non-tender, nondistended. Normal, active bowel sounds MUSCULOSKELETAL: Extremities without clubbing, cyanosis, or edema. NEURO: Alert & Oriented x4 to person, place, time, situation. Moves all ext x4 Medications and IVs Current Medications Sodium Chloride 2 ml 2 ml UNSCH PRN IVF FLUSH AFTER USING IV ACCESS Last administered on 06/05/17 15:37; Start 06/05/17 at 13:45 Diltiazem HCl/ Sodium Chloride (Cardizem Inj/NS Inj) 125 ml @ 0 mls/hr TITRATE IV Last administered on 06/06/17 01:30; Start 06/05/17 at 13:45 Sodium Chloride (NS Flush) 2 ml UNSCH PRN IVF FLUSH AFTER USING IV ACCESS; Start 06/05/17 at 13:45 Diltiazem HCl (Cardizem Inj) 25 mg BOLUS ONCE IV PUSH ; Start 06/05/17 at 14:15 ; Stop 06/05/17 at 14:16; Status Cancel Lorazepam (Ativan Inj) 2 mg ONCE ONCE IV PUSH Last administered on 06/05/17 14:23; Start 06/05/17 at 14:00; Stop 06/05/17 at 14:01; Status DC Diltiazem HCl (Cardizem Inj) 25 mg ONCE ONCE IV PUSH Last administered on 06/05 14:38; Start 06/05/17 at 14:30; Stop 06/05/17 at 14:31; Status DC Diltiazem HCl (Cardizem Inj) 25 mg BOLUS ONCE IV PUSH ; Start 06/05/17 at 15:45 ; Stop 06/05/17 at 15:46; Status Cancel Diltiazem HCl (Cardizem Inj) 25 mg BOLUS ONCE IV Last administered on 15:36; Start 06/05/17 at 15:45; Stop 06/05/17 at 16:33; Status DC Metoprolol Tartrate (Lopressor Inj) 5 mg ONCE ONCE IV PUSH Last administered on 06/05/17 16:03; Start 06/05/17 at 16:00; Stop 06/05/17 at 16:33; Status DC Flumazenil (Romazicon Inj) 0.2 mg Q1M PRN IV PUSH SEE LABEL COMMENTS; Start at 16:30 Lorazepam (Ativan) 1 mg Q4H PRN PO CIWA 8 - 10 Last administered on 06/05/17 19:22; Start 06/05/17 at 16:30 Lorazepam (Ativan Inj) 1 mg Q4H PRN IV PUSH CIWA 8 - 10 Last administered on 23:58; Start 06/05/17 at 16:30 Lorazepam (Ativan) 2 mg Q2H PRN PO CIWA 11-14; Start 06/05/17 at 16:30 Lorazepam (Ativan Inj) 2 mg Q2H PRN IV PUSH CIWA 11-14; Start 06/05/17 at 16:30 Lorazepam (Ativan Inj) 2 mg Q1H PRN IV PUSH CIWA 15-20; Start 06/05/17 at 16:30 Lorazepam 2 mg 2 mg Q15M PRN IV PUSH CIWA > 20; Start 06/05/17 at 16:30 Thiamine HCl 100 mg/Sodium Chloride 101 ml @ 101 mls/hr DAILY IV Last administered on 06/06/17 07:51; Start 06/05/17 at 17:00 Sodium Chloride (NS 1000 ml Inj) 1,000 ml @ 75 mls/hr [id number] ONCE IV Last administered on 06/05/17 17:23; Start 06/05/17 at 16:30; Stop 06/06/17 at 05:49 ; Status DC Diltiazem HCl (Cardizem) 30 mg QID PO Last administered on 06/05/17 22:51; Start 06/05/17 at 18:00; Stop 06/06/17 at 07:35; Status DC Multivitamins (Theragran) 1 tab DAILY PO Last administered on 06/06/17 07:52; Start 06/06/17 at 09:00 Diltiazem HCl (Cardizem) 30 mg QID PO Last administered on 06/06/17t 09:51; Start 06/06/17 at 07:45 A/P Assessment and Plan A/p - atrial fibrillation with rapid ventricular rate- noncompliant with the medical treatment- HR still elevated. started on Cardizem drip - continue with PO cardizem- will add metoprolol. will consider cardiology consult if no improvement with the above-noted regimen. -alcohol abuse [facility] protocol- started on thiamine and multivitamin- counselled on drinking cessation. -thrombocytopenia- due to alcohol- will monitor. -DVT prophylaxis with SCD's Braxton Harman MD Jun 06, 2017 11:44
[2017-06-06] MEDS: LORazepam 2 MG/ML VIAL IV PUSH PRN ×2 (12:14→16:15)
--- NOTE | 2017-06-06 12:56 | EKG ---
Date Performed: 06/05/2017 Time Performed: 15:56:33 PTAGE: 52 years EKG: ATRIAL FIBRILLATION WITH RAPID VENTRICULAR RESPONSE ABNORMAL RHYTHM ECG PREVIOUS TRACING : 06/05/2017 13.40 DOCTOR: Ranjan Ornelas Interpretating Date/Time 06/06/2017 12:51:36
--- NOTE | 2017-06-06 13:00 | EKG ---
Date Performed: 06/05/2017 Time Performed: 13:40:36 PTAGE: 52 years EKG: ATRIAL FIBRILLATION WITH RAPID VENTRICULAR RESPONSE ABNORMAL RHYTHM ECG PREVIOUS TRACING : 03/16/2017 21.56 DOCTOR: Ranjan Ornelas Interpretating Date/Time 06/06/2017 12:54:19
[2017-06-06] MEDS ORDERED: MAGNESIUM SULFATE 1 GM PREMIX 100 ML IV ONE (16:30)
--- NOTE | 2017-06-06 16:47 | ECHRPT ---
Indication: A fib/flutter CONCLUSIONS Normal left ventricular size. Wall thickness is measured at the upper limits of normal. There is mild tricuspid valve regurgitation. The estimated pulmonary arterial pressure is 35__ mmHg. The pulmonary valve is not well visualized. BP: / HR: Rhythm: MEASUREMENTS (Male / Female) Normal Values Technical Quality:Good 2D ECHO LV Diastolic Diameter PLAX 4.3 cm 4.2 - 5.9 / 3.9 - 5.3 cm LV Systolic Diameter PLAX 3.1 cm IVS Diastolic Thickness 1.1 cm 0.6 - 1.0 / 0.6 - 0.9 cm LVPW Diastolic Thickness 1.2 cm 0.6 - 1.0 / 0.6 - 0.9 cm LV Relative Wall Thickness 0.5 RV Internal Dim ED PLAX 3.0 cm M-MODE Aortic Root Diameter MM 3.3 cm LA Systolic Diameter MM 2.9 cm LA Ao Ratio MM 0.9 AV Cusp Separation MM 1.9 cm DOPPLER TR Peak Velocity 296.0 cm/s TR Peak Gradient 35.0 mmHg FINDINGS LEFT VENTRICLE Normal left ventricular size. Wall thickness is measured at the upper limits of normal. The left ventricular systolic function is normal with an estimated ejection fraction in the range of 60-65%. RIGHT VENTRICLE Normal right ventricular size and systolic function. LEFT ATRIUM The left atrial size is normal. RIGHT ATRIUM The right atrial size is normal. ATRIAL SEPTUM Normal atrial septal thickness without atrial level shunting by limited color doppler interrogation. AORTA The aortic root and proximal ascending aorta are normal in size on limited imaging. MITRAL VALVE Structurally normal mitral valve. No mitral valve stenosis or regurgitation. AORTIC VALVE Trileaflet aortic valve. No aortic valve stenosis or regurgitation. TRICUSPID VALVE Structurally normal tricuspid valve. There is mild tricuspid valve regurgitation. The estimated pulmonary arterial pressure is 35__ mmHg. PULMONARY VALVE The pulmonary valve is not well visualized. VESSELS The inferior vena cava is normal in size. PERICARDIUM No pericardial effusion. Lester Lucas MD (Electronically Signed) Final Date:06 June 2017 16:46
--- NOTE | 2017-06-06 17:15 | MB ---
cc: PEDRO NANCE DATE OF CONSULTATION 06/06/17 CHIEF COMPLAINT Shortness of breath and rapid atrial fibrillation HISTORY OF PRESENT ILLNESS Casey Melendez is a 52-year-old man who is a frequent visitor to [place]. He is a chronic alcoholic with alcohol levels as high as 457 January 20 of this year. The patient apparently had his last drink a few days before coming in and is being treated for alcohol withdrawal and is noted to be in atrial fibrillation. I can see records where he has had paroxysmal atrial fibrillation going back to February 08, 2014 with his EKG sometimes showing atrial fibrillation and sometimes showing sinus rhythm. Currently, he is in atrial fibrillation with rapid ventricular response. His major complaint is of shortness of breath. Troponins are negative. He has not had his echo done yet. He says at times his heart rhythm fails perfect and other times it beats fast. He has not been reliable to take medications. He gets disability check monthly, will spend a few weeks in a motel and then be homeless for a week and then get a check and then go back into a motel, etc. That has been his residential pattern. He does not have any typical anginal symptoms. Denies any family history of heart disease. He is a nonsmoker. Currently is on diltiazem 30 q 6 and metoprolol 25 b.i.d. PAST MEDICAL HISTORY 1. Crohn's disease 2. Resection I believe of the ileum, although some reports say it was a colectomy. This was around 1989 or 1990. ALLERGIES LACTOSE PENICILLIN FAMILY HISTORY Noncontributory. REVIEW OF SYSTEMS Otherwise noncontributory. PHYSICAL EXAMINATION GENERAL: A well-developed, well-nourished man who feels mildly anxious. VITAL SIGNS: Charted. He is in a fib with an increased rate. HEENT: Exam unremarkable. NECK: Negative for JVD or bruits. CHEST: Clear to auscultation. CARDIAC: S1-S2 irregular rate and rhythm, tachycardic, cannot appreciate murmurs or gallops. ABDOMEN: Soft, nontender. EXTREMITIES: No clubbing, cyanosis or edema. LABORATORY DATA Hematocrit of 44.6. He has had a low platelet count noted since 2014, currently 75,000 which has been attributed to alcohol. CARDIOLOGY STUDIES EKG shows atrial fibrillation with rapid trigger response. IMPRESSION Paroxysmal atrial fibrillation with rapid ventricular response in this 52-year-old alcoholic. His care is complicated by his social situation since he does not get regular followup or have a regular address. PLAN I am going to increase the diltiazem for now. I am ordering a 2-D echo Doppler study to see if he has a cardiomyopathy. There is no evidence of infarction. I am going to give him 2 grams of magnesium for the magnesium level of 1.7. Further therapy to be determined. MD ANGELA De La Cruz/ /3:27 PM /4:59 PM
[2017-06-06] MEDS: DILTIAZEM HCL 60 MG TAB PO SCH ×2 (17:27→21:13)
[2017-06-06] MEDS: LORazepam 1 MG TAB PO PRN (21:13)
[2017-06-07] VITALS (7 sets, daily range): BP systolic 93–117; BP diastolic 56–70; PULSE 82–94; RESP 16–20; TEMP 97.6–99.4; O2SAT 93–98
[2017-06-07] MEDS: DILTIAZEM INJ 125 MG in SODIUM CHLORIDE 0.9% INJ 100 ML IV SCH ×3 (01:32→17:35)
[2017-06-07] MEDS: LORazepam 1 MG TAB PO PRN (02:40)
[2017-06-07 06:58] LABS: AUTOMATED NEUTROPHIL # 4.6 TH/MM3 (1.8-7.7); BASOPHIL % 0.4 % (0.0-2.0); EOSINOPHIL # 0.1 TH/MM3 (0-0.4); EOSINOPHIL % 2.1 % (0.0-4.0); HEMATOCRIT 42.2 % (39.0-51.0); LYMPH % 18.5 % (9.0-44.0); LYMPHOCYTE # 1.2 TH/MM3 (1.0-4.8); MEAN CELL VOLUME 92.4 FL (80.0-100.0); MEAN CORPUSCULAR HEMOGLOBIN 30.5 PG (27.0-34.0); MONO % 9.9 % (0.0-8.0); NEUT % 69.1 % (16.0-70.0); PLATELET COUNT 71 TH/MM3 (150-450); RED BLOOD COUNT 4.57 MIL/MM3 (4.50-5.90); RED CELL DISTRIBUTION WIDTH 16.3 % (11.6-17.2); WHITE BLOOD COUNT 6.7 TH/MM3 (4.0-11.0)
[2017-06-07 07:11] LABS: HEMO FLAGS AUTO DIFF
[2017-06-07 07:14] LABS: ALT (GPT) 37 U/L (12-78); ANION GAP 11 MEQ/L (5-15); AST (GOT) 40 U/L (15-37); BICARBONATE 23.3 MEQ/L (21.0-32.0); BLOOD UREA NITROGEN 12 MG/DL (7-18); CHLORIDE 105 MEQ/L (98-107); GLOMERULAR FILTRATION RATE 125 ML/MIN (>89); POTASSIUM 3.1 MEQ/L (3.5-5.1); SODIUM (NA) 139 MEQ/L (136-145)
[2017-06-07 07:30] LABS: ALKALINE PHOSPHATASE 74 U/L (45-117)
[2017-06-07] MEDS ORDERED: POTASSIUM CHLORIDE 20 MEQ CONTROLLED RELEASE TAB PO ONE ×2 (08:30→14:00)
[2017-06-07] MEDS ORDERED: MAGNESIUM SULFATE 1 GM PREMIX 100 ML IV PRN (08:30)
[2017-06-07 08:46] LABS: PLATELET ESTIMATE SMEAR LOW (NORMAL); PLATELET MORPHOLOGY NORMAL (NORMAL); SCAN/DIFF AUTO DIFF CONFIRMED
[2017-06-07] MEDS: DILTIAZEM HCL 60 MG TAB PO SCH ×3 (09:17→17:39)
[2017-06-07] MEDS: METOPROLOL TARTRATE 25 MG TAB PO SCH ×2 (09:17→19:45)
[2017-06-07] MEDS: MULTIVITAMIN TAB PO SCH (09:17)
[2017-06-07] MEDS: THIAMINE INJ 100 MG in SODIUM CHLORIDE 0.9% INJ 100 ML IV SCH (09:20)
[2017-06-07] MEDS: LORazepam 2 MG/ML VIAL IV PUSH PRN ×4 (09:24→23:47)
--- NOTE | 2017-06-07 11:56 | HHI.PR ---
Subjective Remarks f/u; a-fib in no acute distress. mild tremors of the hands. HR still elevated and still on cardizem drip. d/w the RN. Objective Vitals Vital Signs Date Time Temp Pulse Resp B/P Pulse Ox O2 Delivery O2 Flow Rate FiO2 06/07/17 08:00 85 06/07/17 08:00 96 Nasal Cannula 2.00 06/07/17 08:00 97.6 84 18 102/56 98 06/07/17 06:28 102/66 06/07/17 04:00 98.4 82 16 93/69 98 06/07/17 00:00 Nasal Cannula 2.00 06/07/17 00:00 98.7 88 20 117/59 97 06/06/17 21:15 97 Nasal Cannula 2.00 06/06/17 20:00 98.4 84 20 105/59 97 06/06/17 20:00 133 06/06/17 16:00 99.1 97 18 97/57 97 06/06/17 12:00 97.4 101 18 105/61 97 I/O 06/06/17 06/06/17 06/06/17 06/07/17 06/07/17 06/07/17 07:00 15:00 23:00 07:00 15:00 23:00 Intake Total 1028 ml 720 ml 240 ml 1014 ml Output Total 500 ml 800 ml 400 ml Balance 1028 ml 220 ml -560 ml 614 ml Intake Oral 330 ml 720 ml 240 ml 240 ml IV Total 698 ml 774 ml Output Urine Total 500 ml 800 ml 400 ml # Bowel Movements 2 0 0 Result Diagram: 06/07/17 0552 06/07/17 0552 Imaging Last Impressions Chest X-Ray 06/05/17 1343 Signed Impressions: Service Date/Time: Monday, June 05, 2017 13:54 - CONCLUSION: No acute disease. Raj Tovar MD FACR Objective Remarks GENERAL: in no apparent distress. CARDIOVASCULAR: tachycardic with irregular rhythm without murmurs, gallops, or rubs. RESPIRATORY: Clear to auscultation. Breath sounds equal bilaterally. No wheezes , rales, or rhonchi. GASTROINTESTINAL: Abdomen soft, non-tender, nondistended. Normal, active bowel sounds MUSCULOSKELETAL: Extremities without clubbing, cyanosis, or edema. NEURO: Alert & Oriented x4 to person, place, time, situation. Moves all ext x4 Medications and IVs Current Medications Sodium Chloride 2 ml 2 ml UNSCH PRN IVF FLUSH AFTER USING IV ACCESS Last administered on 06/05/17 15:37; Start 06/05/17 at 13:45 Diltiazem HCl/ Sodium Chloride (Cardizem Inj/NS Inj) 125 ml @ 0 mls/hr TITRATE IV Last administered on 06/07/17 09:20; Start 06/05/17 at 13:45 Sodium Chloride (NS Flush) 2 ml UNSCH PRN IVF FLUSH AFTER USING IV ACCESS; Start 06/05/17 at 13:45 Diltiazem HCl (Cardizem Inj) 25 mg BOLUS ONCE IV PUSH ; Start 06/05/17 at 14:15 ; Stop 06/05/17 at 14:16; Status Cancel Lorazepam (Ativan Inj) 2 mg ONCE ONCE IV PUSH Last administered on 06/05/17 14:23; Start 06/05/17 at 14:00; Stop 06/05/17 at 14:01; Status DC Diltiazem HCl (Cardizem Inj) 25 mg ONCE ONCE IV PUSH Last administered on 06/05 14:38; Start 06/05/17 at 14:30; Stop 06/05/17 at 14:31; Status DC Diltiazem HCl (Cardizem Inj) 25 mg BOLUS ONCE IV PUSH ; Start 06/05/17 at 15:45 ; Stop 06/05/17 at 15:46; Status Cancel Diltiazem HCl (Cardizem Inj) 25 mg BOLUS ONCE IV Last administered on 15:36; Start 06/05/17 at 15:45; Stop 06/05/17 at 16:33; Status DC Metoprolol Tartrate (Lopressor Inj) 5 mg ONCE ONCE IV PUSH Last administered on 06/05/17 16:03; Start 06/05/17 at 16:00; Stop 06/05/17 at 16:33; Status DC Flumazenil (Romazicon Inj) 0.2 mg Q1M PRN IV PUSH SEE LABEL COMMENTS; Start at 16:30 Lorazepam (Ativan) 1 mg Q4H PRN PO CIWA 8 - 10 Last administered on 06/07/17 02:40; Start 06/05/17 at 16:30 Lorazepam (Ativan Inj) 1 mg Q4H PRN IV PUSH CIWA 8 - 10 Last administered on 09:24; Start 06/05/17 at 16:30 Lorazepam (Ativan) 2 mg Q2H PRN PO CIWA 11-14; Start 06/05/17 at 16:30 Lorazepam (Ativan Inj) 2 mg Q2H PRN IV PUSH CIWA 11-14; Start 06/05/17 at 16:30 Lorazepam (Ativan Inj) 2 mg Q1H PRN IV PUSH CIWA 15-20; Start 06/05/17 at 16:30 Lorazepam 2 mg 2 mg Q15M PRN IV PUSH CIWA > 20; Start 06/05/17 at 16:30 Thiamine HCl 100 mg/Sodium Chloride 101 ml @ 101 mls/hr DAILY IV Last administered on 06/07/17 09:20; Start 06/05/17 at 17:00 Sodium Chloride (NS 1000 ml Inj) 1,000 ml @ 75 mls/hr [id number] ONCE IV Last administered on 06/05/17 17:23; Start 06/05/17 at 16:30; Stop 06/06/17 at 05:49 ; Status DC Diltiazem HCl (Cardizem) 30 mg QID PO Last administered on 06/05/17 22:51; Start 06/05/17 at 18:00; Stop 06/06/17 at 07:35; Status DC Multivitamins (Theragran) 1 tab DAILY PO Last administered on 06/07/17 09:17; Start 06/06/17 at 09:00 Diltiazem HCl (Cardizem) 30 mg QID PO Last administered on 06/06/17 12:42; Start 06/06/17 at 07:45; Stop 06/06/17 at 15:27; Status DC Metoprolol Tartrate (Lopressor) 25 mg Q12HR PO Last administered on 06/07/17 09:17; Start 06/06/17 at 11:45 Diltiazem HCl 60 mg 60 mg QID PO Last administered on 06/07/17 09:17; Start at 18:00 Magnesium Sulfate/ Dextrose (Magnesium Sulfate 1 Gm Premix) 100 ml @ 100 mls/ hr ONCE ONCE IV Last administered on 06/06/17 17:27; Start 06/06/17 at 16:30 ; Stop 06/06/17 at 17:29; Status DC Potassium Chloride (KCl) 40 meq ONCE ONCE PO Last administered on 06/07/17 09 :24; Start 06/07/17 at 08:30; Stop 06/07/17 at 08:33; Status DC Potassium Chloride (KCl) 20 meq ONCE ONCE PO ; Start 06/07/17 at 14:00; Stop at 14:01 Potassium Chloride 40 meq 40 meq ONCE PRN PO POTASSIUM LESS THAN 4; Start 06/08 at 04:00; Stop 06/08/17 at 08:00 Magnesium Sulfate/ Dextrose (Magnesium Sulfate 1 Gm Premix) 100 ml @ 100 mls/ hr ONCE PRN IV MAGNESIUM LESS THAN 2; Start 06/07/17 at 08:30; Stop 06/07/17 at 12:00 A/P Assessment and Plan A/p - atrial fibrillation with rapid ventricular rate- noncompliant with the medical treatment- HR still elevated. still on Cardizem drip - continue with PO cardizem and metoprolol. cardiology following. echo with EF 60%. -alcohol abuse [facility] protocol- started on thiamine and multivitamin- counselled on drinking cessation. -thrombocytopenia- due to alcohol- will monitor. -hypokalemia; will replace and monitor. -DVT prophylaxis with SCD's Braxton Harman MD Jun 07, 2017 11:56
--- NOTE | 2017-06-07 17:42 | PD.CARD.PN ---
Subjective Subjective Remarks No complaints Objective Medications Current Medications Medications (Trade) Dose Ordered Sig/Norma Route Start Time Stop Time Status Last Admin Sodium Chloride 2 ml 2 ml UNSCH PRN IVF 06/05/17 13:45 06/05/17 15:37 (Cardizem Inj/NS Inj) 125 ml @ 0 mls/hr TITRATE IV 06/05/17 13:45 06/07/17 17:35 (NS Flush) 2 ml UNSCH PRN IVF 06/05/17 13:45 (Romazicon Inj) 0.2 mg Q1M PRN IV PUSH 06/05/17 16:30 (Ativan) 1 mg Q4H PRN PO 06/05/17 16:30 06/07/17 02:40 (Ativan Inj) 1 mg Q4H PRN IV PUSH 06/05/17 16:30 06/07/17 14:20 (Ativan) 2 mg Q2H PRN PO 06/05/17 16:30 (Ativan Inj) 2 mg Q2H PRN IV PUSH 06/05/17 16:30 (Ativan Inj) 2 mg Q1H PRN IV PUSH 06/05/17 16:30 Lorazepam 2 mg 2 mg Q15M PRN IV PUSH 06/05/17 16:30 (Thiamine Inj/NS Inj) 101 ml @ 101 mls/hr DAILY IV 06/05/17 17:00 06/07/17 09:20 (Theragran) 1 tab DAILY PO 06/06/17 09:00 06/07/17 09:17 (Lopressor) 25 mg Q12HR PO 06/06/17 11:45 06/07/17 09:17 (Cardizem) 60 mg QID PO 06/06/17 18:00 06/07/17 12:14 (KCl) 40 meq ONCE PRN PO 06/08/17 04:00 06/08/17 08:00 Vital Signs / I&O Vital Signs Date Time Temp Pulse Resp B/P Pulse Ox O2 Delivery O2 Flow Rate FiO2 06/07/17 16:00 99.4 86 16 96/58 93 06/07/17 12:00 98.6 87 16 115/68 95 06/07/17 08:00 85 06/07/17 08:00 96 Nasal Cannula 2.00 06/07/17 08:00 97.6 84 18 102/56 98 06/07/17 06:28 102/66 06/07/17 04:00 98.4 82 16 93/69 98 06/07/17 00:00 Nasal Cannula 2.00 06/07/17 00:00 98.7 88 20 117/59 97 06/06/17 21:15 97 Nasal Cannula 2.00 06/06/17 20:00 98.4 84 20 105/59 97 06/06/17 20:00 133 I/O 06/06/17 06/06/17 06/06/17 06/07/17 06/07/17 06/07/17 06:59 14:59 22:59 06:59 14:59 22:59 Intake Total 1028 ml 720 ml 240 ml 1014 ml 720 ml Output Total 500 ml 800 ml 400 ml 975 ml Balance 1028 ml 220 ml -560 ml 614 ml -255 ml Intake Oral 330 ml 720 ml 240 ml 240 ml 720 ml IV Total 698 ml 774 ml Output Urine Total 500 ml 800 ml 400 ml 975 ml # Voids 3 # Bowel Movements 2 0 0 3 Physical Exam GENERAL: Well developed, well nourished. Mild tremors HEENT: Jugular venous pressure is normal. CHEST: Lungs clear to auscultation bilaterally. Unlabored respiratory effort. CARDIAC: Irregularly irregular rate and rhythm without S3S4 ABDOMEN: Soft, nontender, no hepatosplenomegaly. Bowel sounds present. EXTREMITIES: No clubbing, cyanosis, or edema. Laboratory Laboratory Tests Test 06/07/17 05:52 White Blood Count 6.7 TH/MM3 Red Blood Count 4.57 MIL/MM3 Hemoglobin 13.9 GM/DL Hematocrit 42.2 % Mean Corpuscular Volume 92.4 FL Mean Corpuscular Hemoglobin 30.5 PG Mean Corpuscular Hemoglobin 33.0 % Concent Red Cell Distribution Width 16.3 % Platelet Count 71 TH/MM3 Mean Platelet Volume 7.7 FL Neutrophils (%) (Auto) 69.1 % Lymphocytes (%) (Auto) 18.5 % Monocytes (%) (Auto) 9.9 % Eosinophils (%) (Auto) 2.1 % Basophils (%) (Auto) 0.4 % Neutrophils # (Auto) 4.6 TH/MM3 Lymphocytes # (Auto) 1.2 TH/MM3 Monocytes # (Auto) 0.7 TH/MM3 Eosinophils # (Auto) 0.1 TH/MM3 Basophils # (Auto) 0.0 TH/MM3 CBC Comment AUTO DIFF Differential Comment AUTO DIFF CONFIRMED Platelet Estimate LOW Platelet Morphology Comment NORMAL Sodium Level 139 MEQ/L Potassium Level 3.1 MEQ/L Chloride Level 105 MEQ/L Carbon Dioxide Level 23.3 MEQ/L Anion Gap 11 MEQ/L Blood Urea Nitrogen 12 MG/DL Creatinine 0.67 MG/DL Estimat Glomerular Filtration 125 ML/MIN Rate Random Glucose 83 MG/DL Calcium Level 7.9 MG/DL Total Bilirubin 1.0 MG/DL Aspartate Amino Transf 40 U/L (AST/SGOT) Alanine Aminotransferase 37 U/L (ALT/SGPT) Alkaline Phosphatase 74 U/L Total Protein 5.7 GM/DL Albumin 2.6 GM/DL Assessment and Plan Problem List: (1) Atrial fibrillation with rapid ventricular response Assessment and Plan: Increase Diltiazem to 240mg bid. (2) Hypokalemia Assessment and Plan: Repletion ordered Lester Lucas MD Jun 07, 2017 17:42
[2017-06-07] MEDS: DILTIAZEM-CD 240 MG CAP ER PO SCH (21:59)
[2017-06-08] VITALS (10 sets, daily range): BP systolic 91–120; BP diastolic 54–71; PULSE 71–109; RESP 16–20; TEMP 97.9–99.1; O2SAT 93–100
[2017-06-08] MEDS ORDERED: ACETAMINOPHEN/HYDROcodone 325 MG/5 MG TAB PO ONE (00:30)
[2017-06-08] MEDS: DILTIAZEM INJ 125 MG in SODIUM CHLORIDE 0.9% INJ 100 ML IV SCH (02:54)
[2017-06-08] MEDS ORDERED: POTASSIUM CHLORIDE 20 MEQ CONTROLLED RELEASE TAB PO PRN (04:00)
[2017-06-08] MEDS: MULTIVITAMIN TAB PO SCH (09:10)
[2017-06-08] MEDS: METOPROLOL TARTRATE 25 MG TAB PO SCH (09:10)
[2017-06-08] MEDS: DILTIAZEM-CD 240 MG CAP ER PO SCH ×2 (09:10→21:14)
[2017-06-08] MEDS: THIAMINE INJ 100 MG in SODIUM CHLORIDE 0.9% INJ 100 ML IV SCH (09:18)
--- NOTE | 2017-06-08 10:00 | PD.CARD.PN ---
Subjective Subjective Remarks The patient notes no true cardiac symptoms, GI symptoms or bleeding. Telemetry reveals a mildly rapid atrial fibrillation area he is on intravenous Cardizem along with oral medication. Echocardiogram shows preserved LV function. Objective Medications Reviewed Vital Signs / I&O Vital Signs Date Time Temp Pulse Resp B/P Pulse Ox O2 Delivery O2 Flow Rate FiO2 06/08/17 08:00 98.6 82 16 102/59 95 Automatic Cuff 06/08/17 04:00 100 Room Air 06/08/17 04:00 98.4 92 18 91/65 100 06/08/17 02:23 18 06/08/17 00:00 96 Room Air 06/08/17 00:00 98.3 87 19 114/59 96 06/07/17 22:00 Nasal Cannula 2.00 06/07/17 20:00 94 06/07/17 20:00 99.3 86 17 102/70 98 06/07/17 16:00 99.4 86 16 96/58 93 06/07/17 12:00 98.6 87 16 115/68 95 I/O 06/07/17 06/07/17 06/07/17 06/08/17 06/08/17 06/08/17 06:59 14:59 22:59 06:59 14:59 22:59 Intake Total 1014 ml 720 ml 310 ml 1475 ml Output Total 400 ml 975 ml 640 ml 620 ml Balance 614 ml -255 ml -330 ml 855 ml Intake Oral 240 ml 720 ml 310 ml 240 ml IV Total 774 ml 1235 ml Output Urine Total 400 ml 975 ml 640 ml 620 ml # Voids 3 # Bowel Movements 0 3 0 1 Physical Exam GENERAL: Somewhat cachectic patient in no apparent distress. SKIN: Warm and dry. NECK: JVD normal - less than or equal to 5 cm H20. CARDIOVASCULAR: Irregular rate and rhythm without murmurs, gallops, or rubs. RESPIRATORY: Normal breath sounds - equal bilaterally. No accessory muscle use. No wheezes, rales or rubs. PERIPHERY: No cyanosis, or edema. Laboratory Reviewed and pending from today Imaging Review Assessment and Plan Assessment and Plan Problems: Recurrent atrial fibrillation with rapid response Alcohol abuse Thrombocytopenia which may well be due to cirrhosis Noncompliance Recommendations: Continue oral Cardizem and try to wean off from the drip. I will increase his diltiazem He is a poor candidate for anticoagulation or antiplatelet agent. I have gone over the risks with him and the need for alcohol abstinence. Prognosis poor. Saúl Liu MD Jun 08, 2017 10:00
[2017-06-08 10:20] LABS: BICARBONATE 23.6 MEQ/L (21.0-32.0); MAGNESIUM 1.6 MG/DL (1.5-2.5); POTASSIUM 3.4 MEQ/L (3.5-5.1)
[2017-06-08] MEDS: METOPROLOL TARTRATE 50 MG TAB PO SCH ×2 (11:05→21:14)
[2017-06-08] MEDS ORDERED: ONDANSETRON HCL 4 MG/2 ML VIAL IV PUSH PRN (12:00)
[2017-06-08] MEDS: LORazepam 2 MG/ML VIAL IV PUSH PRN ×2 (14:19→22:05)
[2017-06-08] MEDS ORDERED: POTASSIUM CHLORIDE 20 MEQ CONTROLLED RELEASE TAB PO ONE (15:15)
--- NOTE | 2017-06-08 17:27 | HHI.PR ---
Subjective Remarks Patient tells me that he feels better. He still has tremors. Feels somewhat nauseous but no vomiting. Denies any chest pain or shortness of breath. Objective Vitals Vital Signs Date Time Temp Pulse Resp B/P Pulse Ox O2 Delivery O2 Flow Rate FiO2 06/08/17 16:00 98.7 71 16 106/54 93 06/08/17 12:00 97.9 95 16 107/64 94 06/08/17 08:00 98.6 82 16 102/59 95 Automatic Cuff 06/08/17 04:00 100 Room Air 06/08/17 04:00 98.4 92 18 91/65 100 06/08/17 02:23 18 06/08/17 00:00 96 Room Air 06/08/17 00:00 98.3 87 19 114/59 96 06/07/17 22:00 Nasal Cannula 2.00 06/07/17 20:00 94 06/07/17 20:00 99.3 86 17 102/70 98 I/O 06/07/17 06/07/17 06/07/17 06/08/17 06/08/17 06/08/17 07:00 15:00 23:00 07:00 15:00 23:00 Intake Total 1014 ml 720 ml 310 ml 1475 ml 960 ml Output Total 400 ml 975 ml 640 ml 620 ml Balance 614 ml -255 ml -330 ml 855 ml 960 ml Intake Oral 240 ml 720 ml 310 ml 240 ml 960 ml IV Total 774 ml 1235 ml Output Urine Total 400 ml 975 ml 640 ml 620 ml # Voids 3 3 # Bowel Movements 0 3 0 1 1 Result Diagram: 06/07/17 0552 06/08/17 0926 Imaging Last Impressions Chest X-Ray 06/05/17 1343 Signed Impressions: Service Date/Time: Monday, June 05, 2017 13:54 - CONCLUSION: No acute disease. Raj Tovar MD FACR Objective Remarks GENERAL: Laying in bed CARDIOVASCULAR: Irregularly irregular without murmurs RESPIRATORY: Clear to auscultation. Breath sounds equal bilaterally. No wheezes GASTROINTESTINAL: Abdomen soft, non-tender, nondistended. Normal, active bowel sounds MUSCULOSKELETAL: Extremities without edema. Tremors noted in upper extremities with extension of the arms NEURO: Answers questions. Moves all ext x4 Psych: Appears anxious A/P Problem List: (1) Atrial fibrillation with RVR ICD Code: I48.91 Status: Acute Assessment and Plan - atrial fibrillation with rapid ventricular rate- noncompliant with the medical treatment- HR improving however still requiring a Cardizem drip. Medication being adjusted by cardiology. He is on po Cardizem and metoprolol. Appreciate recommendations from cardiology echo with EF 60%. -alcohol abuse [facility] protocol- on thiamine and multivitamin- counselled on drinking cessation. -thrombocytopenia- due to alcohol- will monitor. -hypokalemia; will replace and monitor. -DVT prophylaxis with SCD's Discharge Planning DC when heart rate controlled on just po regimen Johana Quesada MD Jun 08, 2017 17:27
[2017-06-09] VITALS: BP 101/65; PULSE 72; RESP 16; TEMP 98.3; O2SAT 97
[2017-06-09 00:15] VITALS: BP 116/72; PULSE 76; RESP 16; O2SAT 97
[2017-06-09] MEDS: LORazepam 2 MG/ML VIAL IV PUSH PRN ×3 (02:02→10:14)
[2017-06-09 04:00] VITALS: BP 110/67; PULSE 73; RESP 20; TEMP 98; O2SAT 95
[2017-06-09 07:51] LABS: AUTOMATED NEUTROPHIL # 6.1 TH/MM3 (1.8-7.7); BASOPHIL # 0.1 TH/MM3 (0-0.2); BASOPHIL % 0.7 % (0.0-2.0); EOSINOPHIL # 0.1 TH/MM3 (0-0.4); HEMATOCRIT 46.7 % (39.0-51.0); HEMO FLAGS DIFF FINAL; LYMPH % 16.9 % (9.0-44.0); LYMPHOCYTE # 1.5 TH/MM3 (1.0-4.8); MEAN CELL VOLUME 92.1 FL (80.0-100.0); MEAN CORPUSCULAR HEMOGLOBIN 31.4 PG (27.0-34.0); MEAN CORPUSCULAR HGB CONC 34.1 % (32.0-36.0); NEUT % 69.4 % (16.0-70.0); PLATELET COUNT 113 TH/MM3 (150-450); RED BLOOD COUNT 5.06 MIL/MM3 (4.50-5.90); RED CELL DISTRIBUTION WIDTH 16.2 % (11.6-17.2); WHITE BLOOD COUNT 8.9 TH/MM3 (4.0-11.0)
[2017-06-09 08:00] VITALS: BP 123/80; PULSE 83; PULSE 95; RESP 20; TEMP 98.3; O2SAT 95
[2017-06-09 08:18] LABS: BICARBONATE 24.2 MEQ/L (21.0-32.0); POTASSIUM 3.9 MEQ/L (3.5-5.1)
[2017-06-09] MEDS: MULTIVITAMIN TAB PO SCH (08:45)
[2017-06-09] MEDS: THIAMINE INJ 100 MG in SODIUM CHLORIDE 0.9% INJ 100 ML IV SCH (08:46)
[2017-06-09] MEDS: METOPROLOL TARTRATE 50 MG TAB PO SCH (08:48)
[2017-06-09] MEDS: DILTIAZEM-CD 240 MG CAP ER PO SCH (08:48)
--- NOTE | 2017-06-09 10:00 | PD.CARD.PN ---
Subjective Subjective Remarks The patient is generally fatigued. He denies any specific cardiac symptoms, GI symptoms or bleeding. Telemetry now reveals sinus rhythm. He has been taken off of the Cardizem drip. Objective Medications Reviewed Vital Signs / I&O Vital Signs Date Time Temp Pulse Resp B/P Pulse Ox O2 Delivery O2 Flow Rate FiO2 06/09/17 08:00 98.3 83 20 123/80 95 06/09/17 04:00 98.0 73 20 110/67 95 06/09/17 04:00 Room Air 06/09/17 00:15 76 16 116/72 97 06/09/17 00:00 Room Air 06/09/17 00:00 98.3 72 16 101/65 97 06/08/17 23:45 72 16 102/67 96 06/08/17 23:30 74 16 112/71 97 06/08/17 20:45 79 06/08/17 20:00 Room Air 06/08/17 20:00 99.1 76 20 120/59 96 06/08/17 16:00 Room Air 06/08/17 16:00 98.7 71 16 106/54 93 06/08/17 12:00 97.9 95 16 107/64 94 06/08/17 12:00 Room Air I/O 06/08/17 06/08/17 06/08/17 06/09/17 06/09/17 06/09/17 07:00 15:00 23:00 07:00 15:00 23:00 Intake Total 1475 ml 960 ml 915 ml 53 ml Output Total 620 ml Balance 855 ml 960 ml 915 ml 53 ml Intake Oral 240 ml 960 ml 720 ml IV Total 1235 ml 195 ml 53 ml Output Urine Total 620 ml # Voids 3 2 # Bowel Movements 1 1 Physical Exam GENERAL: Somewhat cachectic patient in no apparent distress. SKIN: Warm and dry. NECK: JVD normal - less than or equal to 5 cm H20. CARDIOVASCULAR: Regular rate and rhythm without murmurs, gallops, or rubs. RESPIRATORY: Normal breath sounds - equal bilaterally. No accessory muscle use. No wheezes, rales or rubs. PERIPHERY: No cyanosis, or edema. Laboratory Laboratory Tests Test 06/09/17 06:33 White Blood Count 8.9 TH/MM3 Red Blood Count 5.06 MIL/MM3 Hemoglobin 15.9 GM/DL Hematocrit 46.7 % Mean Corpuscular Volume 92.1 FL Mean Corpuscular Hemoglobin 31.4 PG Mean Corpuscular Hemoglobin 34.1 % Concent Red Cell Distribution Width 16.2 % Platelet Count 113 TH/MM3 Mean Platelet Volume 7.2 FL Neutrophils (%) (Auto) 69.4 % Lymphocytes (%) (Auto) 16.9 % Monocytes (%) (Auto) 12.0 % Eosinophils (%) (Auto) 1.0 % Basophils (%) (Auto) 0.7 % Neutrophils # (Auto) 6.1 TH/MM3 Lymphocytes # (Auto) 1.5 TH/MM3 Monocytes # (Auto) 1.1 TH/MM3 Eosinophils # (Auto) 0.1 TH/MM3 Basophils # (Auto) 0.1 TH/MM3 CBC Comment DIFF FINAL Differential Comment Sodium Level 137 MEQ/L Potassium Level 3.9 MEQ/L Chloride Level 103 MEQ/L Carbon Dioxide Level 24.2 MEQ/L Anion Gap 10 MEQ/L Blood Urea Nitrogen 8 MG/DL Creatinine 0.68 MG/DL Estimat Glomerular Filtration 122 ML/MIN Rate Random Glucose 89 MG/DL Calcium Level 9.1 MG/DL Imaging Reviewed Assessment and Plan Assessment and Plan Problems: Recurrent atrial fibrillation with rapid response Alcohol abuse Thrombocytopenia which may well be due to cirrhosis Noncompliance Recommendations: Continue oral Cardizem and beta blockers He is a poor candidate for anticoagulation or antiplatelet agent. I have gone over the risks with him and the need for alcohol abstinence. Prognosis poor. He will need to follow-up with a primary care physician and chemistry intern on his medical plan. I am not convinced that he will be compliant. We will be signing off and be available this hospital stay only on an as-needed basis. Saúl Liu MD Jun 09, 2017 10:00
[2017-06-09 12:00] VITALS: BP 116/74; PULSE 83; RESP 20; TEMP 97.3; O2SAT 100
[2017-06-09] MEDS ORDERED: METO-309 PO (13:08)
[2017-06-09] MEDS ORDERED: CARD240C6 PO (13:08)
--- NOTE | 2017-06-09 13:14 | HHI.DS ---
Discharge Summary Admission Date Jun 05, 2017 at 16:23 Discharge Date: Jun 09, 2017 Admitting Diagnosis atrial fibrillation with rvr, alcohol withdrawal (1) Atrial fibrillation with RVR ICD Code: I48.91 Diagnosis: Principal (2) Alcohol withdrawal ICD Code: F10.239 Diagnosis: Principal Procedures none Brief History - From Admission patient is a 52 y/o male with history of atrial fibrillation and alcohol abuse who presented to ER with dizziness. he says that his last drink was three days ago. he started to feel dizzy earlier today. he has a history of atrial fibrillation but he's not taking any medication. he had some vague epigastric/ chest pain earlier along with some nausea. CBC/BMP: 06/09/17 0633 06/09/17 0633 Significant Findings Laboratory Tests Test 06/07/17 06/08/17 06/09/17 05:52 09:26 06:33 Platelet Count 71 TH/MM3 113 TH/MM3 (150-450) (150-450) Monocytes (%) (Auto) 9.9 % (0.0-8.0) 12.0 % (0.0-8.0) Platelet Estimate LOW (NORMAL) Potassium Level 3.1 MEQ/L 3.4 MEQ/L (3.5-5.1) (3.5-5.1) Calcium Level 7.9 MG/DL (8.5-10.1) Aspartate Amino Transf 40 U/L (15-37) (AST/SGOT) Total Protein 5.7 GM/DL (6.4-8.2) Albumin 2.6 GM/DL (3.4-5.0) Random Glucose 124 MG/DL (74-106) Monocytes # (Auto) 1.1 TH/MM3 (0-0.9) Imaging Last Impressions Chest X-Ray 06/05/17 1343 Signed Impressions: Service Date/Time: Monday, June 05, 2017 13:54 - CONCLUSION: No acute disease. Raj Tovar MD FACR PE at Discharge GENERAL: Laying in bed CARDIOVASCULAR: Irregularly irregular without murmurs RESPIRATORY: Clear to auscultation. Breath sounds equal bilaterally. No wheezes GASTROINTESTINAL: Abdomen soft, non-tender, nondistended. Normal, active bowel sounds MUSCULOSKELETAL: Extremities without edema. Tremors noted in upper extremities with extension of the arms NEURO: Answers questions. Moves all ext x4 Psych: Appears anxious Pt update on day of discharge Pt feeling better. a bit weak but has been moving around the room. no cp/ palipations/n/v Hospital Course - atrial fibrillation with rapid ventricular rate- noncompliant with the medical treatment- now back in sinus rhythm, off Cardizem drip. Medication being adjusted by cardiology and tolerating it well. Appreciate recommendations from cardiology. Pt to f/u w PCP and cards as an outpatient. Per core sticker, pt is a poor candidate for anticoagulation or antiplatelet agent. Echo with EF 60%. -alcohol abuse- Pt has been counselled on drinking cessation. PT evaluated the patient and I was notified by RN that they have cleared pt for d/c. No PT needed Pt Condition on Discharge: Stable Discharge Disposition: Discharge Home Discharge Time: > 30 minutes Discharge Instructions DIET: Follow Instructions for: Heart Healthy Diet Activities you can perform: Regular-No Restrictions Follow up Referrals: Cardiology - 1 Week PCP Follow-up - 1 Week New Medications: Diltiazem CD 24 HR (Cardizem CD 24 HR) 240 Mg Caper 240 MG PO BID Days 30 CAP Metoprolol Tartrate (Lopressor) 50 Mg Tab 50 MG PO Q12HR Days 30 TAB Johana Quesada MD Jun 09, 2017 13:14
== END 2017-06-09 15:20 | disposition home or self-care (01) | DRG 309 ==
LOC: NEPE 13:18 → NEDA 16:23 → N04A 20:57
PROVIDERS: ADMIT Hospitalist; ATTEND Hospitalist
DX: I48.91 Unspecified atrial fibrillation (principal); F10.239 Alcohol dependence with withdrawal, unspecified; R64 Cachexia; K50.90 Crohn's disease, unspecified, without complications; D69.59 Other secondary thrombocytopenia; Z91.19 Patient's noncompliance with other medical treatment and regimen; H91.90 Unspecified hearing loss, unspecified ear; Z90.49 Acquired absence of other specified parts of digestive tract; E87.6 Hypokalemia; Z68.24 Body mass index [BMI] 24.0-24.9, adult
CPT/HCPCS: 71010; 80048; 80053; 82550; 82552; 83735; 84484; 85025; 85610; 85730; 93005; 93306; 96365; 96366; 96375; 96376; J2060; J2405; J3411; J3475; J7030

== ENCOUNTER 2017-07-04 07:02 | Inpatient (IN) | payer MEDICAID ==
[~2017-07-04] VITALS: Ht 170.2 cm; Wt 70.0 kg
[2017-07-04] VITALS (7 sets, daily range): BP systolic 153–184; BP diastolic 80–103; PULSE 76–87; RESP 16–19; TEMP 98.4–99.7; O2SAT 95–99
[~2017-07-04 07:02] MED LIST changes: +CARD240C6 PO; -CARV3.125 PO; -FOLI1TAB4 PO; +METO-309 PO; -VITA100T2 PO
[2017-07-04] MEDS ORDERED: SODIUM CHLOR 0.9% 1000 ML INJ 1,000 ML IV ONE (07:30)
[2017-07-04 07:45] LABS: AUTOMATED NEUTROPHIL # 7.3 TH/MM3 (1.8-7.7); BASOPHIL # 0.1 TH/MM3 (0-0.2); BASOPHIL % 0.7 % (0.0-2.0); EOSINOPHIL # 0.2 TH/MM3 (0-0.4); EOSINOPHIL % 1.6 % (0.0-4.0); HEMATOCRIT 48.6 % (39.0-51.0); HEMO FLAGS DIFF FINAL; LYMPH % 15.5 % (9.0-44.0); LYMPHOCYTE # 1.5 TH/MM3 (1.0-4.8); MEAN CELL VOLUME 92.4 FL (80.0-100.0); MEAN CORPUSCULAR HEMOGLOBIN 30.9 PG (27.0-34.0); MEAN CORPUSCULAR HGB CONC 33.4 % (32.0-36.0); NEUT % 73.2 % (16.0-70.0); PLATELET COUNT 281 TH/MM3 (150-450); RED BLOOD COUNT 5.26 MIL/MM3 (4.50-5.90); RED CELL DISTRIBUTION WIDTH 16.1 % (11.6-17.2); WHITE BLOOD COUNT 9.9 TH/MM3 (4.0-11.0)
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
[2017-07-04 08:07] LABS: ALT (GPT) 32 U/L (12-78); ANION GAP 8 MEQ/L (5-15); AST (GOT) 24 U/L (15-37); BICARBONATE 28.2 MEQ/L (21.0-32.0); BLOOD UREA NITROGEN 5 MG/DL (7-18); CHLORIDE 101 MEQ/L (98-107); GLOMERULAR FILTRATION RATE 96 ML/MIN (>89); SODIUM (NA) 137 MEQ/L (136-145)
[2017-07-04 08:09] LABS: ALKALINE PHOSPHATASE 143 U/L (45-117); TOTAL BILIRUBIN ADULT 1.4 MG/DL (0.2-1.0)
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
[2017-07-04] MEDS ORDERED: MORPHINE SULFATE 4 MG/ML INJ IV PUSH ONE (09:00)
[2017-07-04] MEDS: SODIUM CHLOR 0.9% 1000 ML INJ 1,000 ML IV SCH ×2 (12:24→19:44)
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
[2017-07-04] MEDS ORDERED: ONDANSETRON HCL 4 MG/2 ML VIAL IV PUSH PRN (14:15)
[2017-07-04] MEDS: HYDROmorphone HCL PF 1 MG/ML VIAL IV PUSH PRN ×2 (15:13→19:44)
[2017-07-04] MEDS ORDERED: ENALAPRILAT 1.25 MG/ML VIAL IV PUSH PRN (16:30)
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
[2017-07-05] MEDS: HYDROmorphone HCL PF 1 MG/ML VIAL IV PUSH PRN ×5 (00:14→20:30)
[2017-07-05 00:40] VITALS: BP 170/91; PULSE 71; RESP 19; TEMP 98.6; O2SAT 98
[2017-07-05] MEDS: SODIUM CHLOR 0.9% 1000 ML INJ 1,000 ML IV SCH ×2 (01:09→17:00)
[2017-07-05 03:58] VITALS: BP 145/83; PULSE 76; RESP 20; TEMP 99.6; O2SAT 95
[2017-07-05 07:59] VITALS: BP 146/87; PULSE 69; RESP 16; TEMP 98.3; O2SAT 96
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
[2017-07-05] MEDS ORDERED: CHLORHEXIDINE GLUCONATE 0.12% 15 ML CUP ONE (12:14)
[2017-07-05 12:25] VITALS: BP 162/99; PULSE 79; RESP 18; TEMP 98.3; O2SAT 96
[2017-07-05] MEDS ORDERED: ACETAMINOPHEN 1000 MG/100 ML 100 ML IV ONE (13:03)
[2017-07-05] MEDS ORDERED: MIDAZOLAM HCL 2 MG/2 ML VIAL ONE (13:03)
[2017-07-05] MEDS ORDERED: DICLOFENAC SODIUM 37.5 MG/ML VIAL IV PUSH ONE (13:03)
[2017-07-05] MEDS ORDERED: DEXAMETHASONE SOD PHOS 4 MG/ML VIAL ONE (13:04)
[2017-07-05] MEDS ORDERED: FAMOTIDINE 20 MG/2 ML VIAL ONE (13:04)
[2017-07-05] MEDS ORDERED: CLINDAMYCIN PHOS 600 MG/4 ML VIAL ONE (13:40)
[2017-07-05] MEDS ORDERED: LIDOCAINE 2%/EPINEPHrine 1:100,000 20ML MDV INFIL ONE (14:17)
[2017-07-05] MEDS ORDERED: NALOXONE HCL 0.4 MG/ML AMP IV ONE (14:55)
[2017-07-05] MEDS ORDERED: PROPOFOL 200 MG/20 ML AMP IV ONE (14:55)
[2017-07-05] MEDS ORDERED: ONDANSETRON HCL 4 MG/2 ML VIAL IV PUSH ONE (14:55)
[2017-07-05] MEDS ORDERED: PHENYLEPH/NS 1000 MCG/10 ML SYR IV ONE (14:55)
[2017-07-05] MEDS ORDERED: LACTATED RINGER'S 1000 ML INJ 1,000 ML IV ONE (14:55)
[2017-07-05] MEDS ORDERED: DO NOT ADM ANY ANTICOAGULANT DRUGS PRN (15:00)
[2017-07-05] MEDS ORDERED: hydrALAZINE HCL 20 MG/ML VIAL ONE (15:08)
--- NOTE | 2017-07-05 15:09 | HHI.PR ---
Immediate Post Op Note Procedure Date: Jul 05, 2017 Pre Op Diagnosis: right mandible body fracture Post Op Diagnosis: danisha Surgeon: Reinier Martin Fur Dyer(s): wilberto alonzo Procedure: open reduction internal fixation of right mandibular body fracture Complications: none Estimated blood loss: 10cc Anesthesia: General, Local (2%lidocaine with 1:100,000 epi approx 5 cc) Drains: None Patient to: PACU Patient Condition: Good Implant/Devices: SEE IMPLANT LOG (if applicable) Date/Time of Procedure: SEE SURGICAL CARE RECORD Reinier Martin DMD Jul 05, 2017 15:09
[2017-07-05] MEDS ORDERED: methylPREDNISolone SOD SUCC 125 MG/2 ML VIAL ONE (15:20)
[2017-07-05] MEDS ORDERED: *LABETALOL HCL 100 MG/20 ML VIAL PERIprocedural Use ONLY ONE (15:21)
[2017-07-05] MEDS ORDERED: *morphine SULFATE 8 MG/ML PERIprocedure ONLY ONE ×2 (15:31→15:50)
[2017-07-05] MEDS: methylPREDNISolone SOD SUCC 125 MG/2 ML VIAL IV SCH ×2 (15:45→20:35)
[2017-07-05 18:00] VITALS: BP 158/88; PULSE 92; RESP 20; TEMP 98.4; O2SAT 95
[2017-07-05 20:00] VITALS: BP 135/86; PULSE 89; RESP 16; TEMP 97; O2SAT 93
[2017-07-05] MEDS: CHLORHEXIDINE GLUCONATE 0.12% 15 ML CUP SWISH-SPIT SCH (20:00)
[2017-07-05] MEDS ORDERED: methylPREDNISolone ACETATE 80 MG/ML VIAL IM ONE (22:00)
[2017-07-05] MEDS: CLINDAMYCIN 600 MG/NS 100 ML IV SCH ×2 (22:58)
[2017-07-06] VITALS: BP 129/78; PULSE 85; RESP 16; TEMP 97.9; O2SAT 93
[2017-07-06] MEDS: HYDROmorphone HCL PF 1 MG/ML VIAL IV PUSH PRN ×4 (00:48→12:44)
[2017-07-06] MEDS: SODIUM CHLOR 0.9% 1000 ML INJ 1,000 ML IV SCH ×2 (03:00→11:18)
[2017-07-06 04:00] VITALS: BP_SYST 119; PULSE 75; RESP 16; TEMP 97.4; O2SAT 92
[2017-07-06] MEDS: CLINDAMYCIN 600 MG/NS 100 ML IV SCH ×4 (05:32→14:09)
[2017-07-06 08:00] VITALS: BP 134/75; PULSE 77; RESP 16; TEMP 97.1; O2SAT 95
[2017-07-06] MEDS: CHLORHEXIDINE GLUCONATE 0.12% 15 ML CUP SWISH-SPIT SCH (08:34)
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
[2017-07-06] MEDS ORDERED: HYDR1SOL3 PO (08:37)
[2017-07-06 12:00] VITALS: BP 156/88; PULSE 66; RESP 16; TEMP 96.2; O2SAT 97
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
[2017-07-06] MEDS ORDERED: CLIN75SO PO ×2 (12:35→12:38)
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
== END 2017-07-06 15:38 | disposition home or self-care (01) | DRG 131 ==
LOC: NEPE 07:02 → NEDA 10:48 → NEPGCP 12:20 → N07B 07-05 13:26 → OBSVTOIN 07-05 17:15
PROVIDERS: ADMIT Internal Medicine; ATTEND Internal Medicine
PROC: 0NST04Z Reposition Right Mandible with Internal Fixation Device, Open Approach (ICD-10-PCS; principal; 2017-07-05 13:41)
DX: S02.601A Fracture of unspecified part of body of right mandible, initial encounter for closed fracture (principal); K50.90 Crohn's disease, unspecified, without complications; I48.91 Unspecified atrial fibrillation; R13.10 Dysphagia, unspecified; K57.92 Diverticulitis of intestine, part unspecified, without perforation or abscess without bleeding; I10 Essential (primary) hypertension; H91.90 Unspecified hearing loss, unspecified ear; Y04.2XXA Assault by strike against or bumped into by another person, initial encounter; Y92.9 Unspecified place or not applicable; Z59.0 Homelessness; Z90.49 Acquired absence of other specified parts of digestive tract
CPT/HCPCS: 70450; 70486; 72125; 80053; 85025; 87641; 96361; 96374; C1713; G0378; J0131; J0360; J1040; J1100; J1130; J1170; J2250; J2270; J2310; J2370; J2405; J2930; J3010; J7030; J7120